=== PATIENT | female | born 1940 | race Caucasian/White ===

== ENCOUNTER → 2020-10-09 14:32 | Outpatient (CLI) | payer MEDICARE, SELFPAY ==
--- NOTE | ~2020-10-09 | XR_ITS ---
EXAMINATION: XR hand RT min 3V, XR wrist RT min 3V DATE: 10/09/2020 14:57 INDICATION: Right hand and wrist pain post fall TECHNIQUE: 1. Posteroanterior, ulnar deviation, oblique, and lateral views of the right wrist were obtained. 2. Dorsal palmar, oblique and lateral views of the right hand were obtained. COMPARISON: None. FINDINGS: Nondisplaced oblique extra articular fracture of the diaphysis of the fifth metacarpal with 5 degrees palmar angulation. Postoperative changes of prior suspension arthroplasty with resection of the trap ezium. The base of the first metacarpal has migrated approximately now articulating with the distal p ole of the scaphoid there is mild chondrocalcinosis. Bone alignment is otherwise normal. Additional c hondrocalcinosis at the triangular fibrocartilage complex. Dystrophic calcific lesion at the ulnar si de of the third proximal interphalangeal joint likely along the ulnar collateral ligament. Mild polya rticular osteoarthritis at the distal radioulnar, wrist, triscaphe, first carpometacarpal and multipl e interphalangeal joints. Diffuse osteopenia. IMPRESSION: 1. 5 degrees palmar angulation of a nondisplaced extra-articular diaphyseal fracture of the right fif th metacarpal. 2. Chondrocalcinosis and mild polyarticular osteoarthritis at the right hand and wrist. 3. Postoperative change of prior first carpal metacarpal suspension arthroplasty with resection of th e trapezium. Reviewed, dictated and finalized at location B. GER GAMES IMPRESSION: 1. 5 degrees palmar angulation of a nondisplaced extra-articular diaphyseal fra cture of the right fifth metacarpal. 2. Chondrocalcinosis and mild polyarticular osteoarthritis at the right hand an d wrist. 3. Postoperative change of prior first carpal metacarpal suspension arthroplast y with resection of the trapezium.
== END ==
PROVIDERS: PCP Family Medicine; Visit Provider Nurse Practitioner
DX: M25.531 Pain in right wrist (principal); M79.641 Pain in right hand; S62.396A Other fracture of fifth metacarpal bone, right hand, initial encounter for closed fracture; M19.041 Primary osteoarthritis, right hand; M11.241 Other chondrocalcinosis, right hand; Z98.890 Other specified postprocedural states
CPT/HCPCS: 73110; 73130

== ENCOUNTER → 2021-01-25 09:54 | Outpatient (CLI) | payer MEDICARE, SELFPAY ==
--- NOTE | ~2021-01-25 | MM_ITS ---
EXAMINATION: MM screening [facility] BI w bonilla HISTORY: Screening mammogram TECHNIQUE: Craniocaudal and mediolateral oblique 3-D tomosynthesis images were obtained and synthetic 2-D images were generated. CAD analysis was submitted and interpreted. COMPARISON: 10/20/2018, 04/14/2017, 06/23/2015 BREAST PARENCHYMAL COMPOSITION: The breasts are almost entirely fatty. FINDINGS: A right breast mass demonstrates slow decrease in size over serial mammograms, consistent w ith a benign finding. There is no evidence of suspicious mass, calcification, or architectural distor tion to suggest malignancy in either breast. There has been no suspicious interval change. IMPRESSION: 1. No mammographic evidence of malignancy. 2. Recommend routine screening mammography while the patient remains in good health. BI-RADS Category 2: Benign finding(s). Reviewed, dictated and finalized at location A. IMPRESSION: 1. No mammographic evidence of malignancy. 2. Recommend routine screening mammography while the patient remains in good he alth. BI-RADS Category 2: Benign finding(s).
--- NOTE | ~2021-01-25 | DEXA_ITS ---
Bone Density Report Name: Juliana Grimes Age: 80 Sex: Female Ethnicity: White Date of : 1940 Indication: postmenopausal; screening for osteoporosis; prior fracture; asthma or emphysema; Referring Provider: Mariola To Study: Bone densitometry was performed. Exam Date: January 25, 2021 Accession number: [id number] Bone Density: Region BMD T-score Z-score Classification AP Spine (L1-L4) 1.001 -0.4 2.3 Normal Femoral Neck (Left) 0.713 -1.2 1.1 Osteopenia Total Hip (Left) 0.899 -0.4 1.7 Normal Femoral Neck (Right) 0.709 -1.3 1.1 Osteopenia Total Hip (Right) 0.919 -0.2 1.9 Normal Total Hip Mean 0.909 -0.3 1.8 Normal World Health Organization criteria for BMD impression classify patients as: Normal (T-score at or above -1.0), Osteopenia (T-score between -1.0 and -2.5), or Osteoporosis (T-score at or below -2.5). 10-year Fracture Risk(1): Major Osteoporotic Fracture 17% Hip Fracture 3.2% Reported Risk Factors: [place] (), Neck BMD=0.709, BMI=33.3, previous fracture (1) FRAX(R) Version 3.08. Fracture probability calculated for an untreated patient. Fracture probability may be lower if the patient has received treatment. Clinical Information Provided by Patient: Has had a low trauma fracture Has used the following medications: Vitamin D Has the following medical conditions: Asthma or Emphysema Patient maximum height was 58.5 Menopause Age: 50 Drinks caffeinated beverages Onset of menses at age 12 Number of children 1 Impression: The patient has low bone mass, based on the Right Femoral Neck T-score. The patient has an estimated ten-year risk of hip fracture of 3.2% and an estimated ten-year risk of major fracture of 17%, based on the WHO FRAX algorithm. The patient has risk factors, including: previous fracture. Discussion: BONE DENSITY IS LOW AT ONE OR MORE SKELETAL SITES. THE PATIENT'S BMD AND CLINICAL RISK FACTORS CONTRIBUTE TO THIS PATIENT'S INCREASED RISK OF FRACTURE. This patient's lowest T-score is low at one or more skeletal sites. It meets the World Health Organization's (WHO) criteria for ?low bone mass? (T-score between -1.0 and -2.5). The patient's 10-year risk of hip fracture as calculated by FRAX exceeds the threshold where pharmacological therapy is recommended by the National Osteoporosis Foundation (NOF). However, all treatment decisions require clinical judgment and consideration of individual patient factors, including patient preferences, comorbidities, previous drug use, risk factors not captured in the FRAX model (e.g., frailty, falls, vitamin D deficiency, increased bone turnover, interval significant decline in bone density) and possible under or overestimation of fracture risk by FRAX. The patient should follow a healthful lifestyle (good nutrition with
== END ==
PROVIDERS: PCP Family Medicine; Visit Provider Family Medicine
DX: Z12.31 Encounter for screening mammogram for malignant neoplasm of breast (principal); Z78.0 Asymptomatic menopausal state; M85.89 Other specified disorders of bone density and structure, multiple sites
CPT/HCPCS: 77063; 77067; 77080

== ENCOUNTER 2022-02-06 11:10 | Outpatient (CLI) | payer MEDICARE, SELFPAY ==
--- NOTE | ~2022-02-06 | XR_ITS ---
EXAMINATION: XR hip RT 2V w AP pelvis DATE: 02/06/2022 11:48 INDICATION: Right hip pain. TECHNIQUE: An anteroposterior view of the pelvis and 2 views of right hip were obtained. COMPARISON: Pelvis radiograph 01/19/2011 FINDINGS: Bone alignment is normal. There is a comminuted fracture of right parasymphyseal pubis. The re is mild osteoarthritis of the hips. There is mild lumbar spondylosis. There are surgical clips in the pelvis. IMPRESSION: 1. Comminuted fracture of right parasymphyseal pubis. Reviewed, dictated and finalized at location A.
== END 2022-02-06 11:11 | disposition home or self-care (01) ==
PROVIDERS: PCP Family Medicine
DX: M16.0 Bilateral primary osteoarthritis of hip (principal); S32.501A Unspecified fracture of right pubis, initial encounter for closed fracture; M47.816 Spondylosis without myelopathy or radiculopathy, lumbar region
CPT/HCPCS: 73502

== ENCOUNTER 2022-03-14 11:44 | Outpatient (CLI) | payer MEDICARE, SELFPAY ==
--- NOTE | ~2022-03-14 | XR_ITS ---
XR hip RT 2V w AP pelvis 03/14/2022 12:07 Indication: Pelvic fracture. Continued right hip pain. Procedure: AP pelvis and 2 views right hip Comparison: 02/06/2022 Findings: There is a healing comminuted right parasymphyseal pubis fracture with developing callus fo rmation. Moderate lower lumbar spondylosis. Sacral foramen are symmetric. Mild osteoarthritis of the hips. No significant soft tissue abnormality. Impression: 1: Healing comminuted right parasymphyseal pubis fracture. Reviewed, dictated and finalized at location A. Impression: 1: Healing comminuted right parasymphyseal pubis fracture.
== END 2022-03-14 11:45 | disposition home or self-care (01) ==
PROVIDERS: PCP Family Medicine; Visit Provider Physician Assistant
DX: S32.501A Unspecified fracture of right pubis, initial encounter for closed fracture (principal)
CPT/HCPCS: 73502

== ENCOUNTER 2022-04-02 10:32 | Outpatient (CLI) | payer MEDICARE, SELFPAY ==
[2022-04-02 18:54] LABS: Alanine Aminotransferase 18 U/L (6-35); Albumin Level 4.6 g/dL (3.5-5.1); Alkaline Phosphatase 210 U/L (38-126); Anion Gap 9 mmol/L (8-16); Aspartate Amino Transferase 46 U/L (14-36); Bilirubin,Total 1.1 mg/dL (0.2-1.3); Blood Urea Nitrogen 20 mg/dL (7-17); Carbon Dioxide 30 mmol/L (22-30); Chloride 93 mmol/L (98-107); Estimated Glomerular Filt Rate > 60; Glucose 88 mg/dL (65-110); Potassium 3.5 mmol/L (3.4-5.0); Sodium 132 mmol/L (137-145)
[2022-04-02 20:54] LABS: Hemoglobin A1C 5.5 % (<5.7)
== END 2022-04-02 10:33 | disposition home or self-care (01) ==
LOC: ANHGOSHLAB 10:34
PROVIDERS: PCP Family Medicine; Visit Provider Family Medicine
DX: E03.9 Hypothyroidism, unspecified (principal); E11.9 Type 2 diabetes mellitus without complications; I10 Essential (primary) hypertension
CPT/HCPCS: 36415; 80053; 83036; 84443

== ENCOUNTER 2022-04-22 10:26 | Outpatient (CLI) | payer MEDICARE, MEDICAID, SELFPAY ==
--- NOTE | ~2022-04-22 | XR_ITS ---
XR hip RT 2V w AP pelvis DATE: 04/22/2022 11:51 INDICATION: Right pelvic pain. Pelvic fracture 6 months ago TECHNIQUE: AP pelvis. AP and lateral views of right hip. COMPARISON: 03/14/2022 pelvis and right hip 02/06/2022 pelvis and right hip FINDINGS: There is some prominent heterotropic ossification around the right parasymphyseal and infer ior pubic ramus fractures consistent with healing, with no significant interval change in position or alignment since 02/06/2022. No fracture or dislocation of the right hip is noted. There is some sclerosis of the sacrum which may be due to at least in part to degenerative changes at the sacroiliac joints, but there does appear to be some increased sclerosis of the sacrum particular ly on the right which might be healing sacral fracture. (Pelvic ring fractures tend to be multiple.) If further evaluation is desired, consider pelvic CT. IMPRESSION: Healing right parasymphyseal pubic and right inferior pubic ramus fractures. There may be a healing sacral fracture as well, as there is new sclerosis of the sacrum particularly on the right since 02/06/2022. No fracture or dislocation of the right hip is detected. Reviewed, dictated and finalized at location B. IMPRESSION: Healing right parasymphyseal pubic and right inferior pubic ramus f ractures. There may be a healing sacral fracture as well, as there is new scler osis of the sacrum particularly on the right since 02/06/2022. No fracture or dislocation of the right hip is detected.
--- NOTE | ~2022-04-22 | MM_ITS ---
EXAMINATION: MM screening [facility] BI w bonilla HISTORY: Screening mammogram TECHNIQUE: Craniocaudal and mediolateral oblique 3-D tomosynthesis images were obtained and synthetic 2-D images were generated. CAD analysis was submitted and interpreted. COMPARISON: 01/25/2021, 10/20/2018, 04/14/2017 BREAST PARENCHYMAL COMPOSITION: The breasts are almost entirely fatty. FINDINGS: RIGHT BREAST: There is no suspicious mass, calcification, or architectural distortion to suggest heath gnancy. There has been no significant interval change. LEFT BREAST: There are grouped indeterminate calcifications in the middle third of the central breast best appreciated on the craniocaudal view. IMPRESSION: 1. Indeterminate left breast calcifications. 2. Magnification views are recommended. BI-RADS Category 0: Incomplete: Needs additional imaging evaluation. Reviewed, dictated and finalized at location A.
== END 2022-04-22 10:27 | disposition home or self-care (01) ==
PROVIDERS: PCP Family Medicine; Visit Provider Physician Assistant
DX: Z12.31 Encounter for screening mammogram for malignant neoplasm of breast (principal); R92.8 Other abnormal and inconclusive findings on diagnostic imaging of breast; M25.551 Pain in right hip; Z87.81 Personal history of (healed) traumatic fracture; M89.9 Disorder of bone, unspecified
CPT/HCPCS: 73502; 77063; 77067

== ENCOUNTER → 2022-05-29 11:57 | Outpatient (CLI) | payer MEDICARE, MEDICAID, SELFPAY ==
--- NOTE | ~2022-05-29 | XR_ITS ---
EXAMINATION: XR hip BI 2V w AP pelvis DATE: 05/29/2022 12:41 INDICATION: Right hip pain. TECHNIQUE: An anteroposterior pelvis and 2 views of each hip were obtained. COMPARISON: Pelvis and hip radiographs 04/22/2022, 02/06/22 FINDINGS: There is a comminuted fracture deformity of right parasymphyseal pubis and right inferior p ubic ramus with callus formation. There is mild osteoarthritis of the hips. There is mild lumbar spon dylosis. Surgical clips overlie the pelvis. IMPRESSION: 1. Stable healing/healed fracture deformity of right parasymphyseal pubis and right inferior pubic ra mus. 2. Mild osteoarthritis of the hips. Reviewed, dictated and finalized at location A. IMPRESSION: 1. Stable healing/healed fracture deformity of right parasymphyseal pubis and r ight inferior pubic ramus. 2. Mild osteoarthritis of the hips.
== END ==
PROVIDERS: PCP Family Medicine; Visit Provider Nurse Practitioner Family
DX: M16.11 Unilateral primary osteoarthritis, right hip (principal)
CPT/HCPCS: 73521

== ENCOUNTER 2022-06-25 03:13 | Emergency (ER) | payer MEDICARE, MEDICAID, SELFPAY ==
--- NOTE | ~2022-06-25 | CT_ITS ---
EXAMINATION: CT brain wo con DATE: 06/25/2022 03:45 INDICATION: Head injury. TECHNIQUE: Computed tomography (CT) of the head was performed without intravenous contrast. The mA wa s adjusted according to patient size. Iterative reconstruction technique was employed. The dose-lengt h product was 529.67 mGy-cm. COMPARISON: Head CT 01/19/2011 FINDINGS: There are scattered areas of low attenuation in the cerebral white matter. There is no intr acranial hemorrhage, acute infarction, or abnormal intracranial mass lesion. The ventricles are marilyn l in size. The orbits are normal. There is mild mucosal thickening in the paranasal sinuses. There is a trace left mastoid effusion. The orbits are normal. IMPRESSION: 1. Stable extensive nonspecific cerebral white matter disease, which likely represents chronic small vessel ischemic disease. Reviewed, dictated and finalized at location A. IMPRESSION: 1. Stable extensive nonspecific cerebral white matter disease, which likely rep resents chronic small vessel ischemic disease.
--- NOTE | ~2022-06-25 | CT_ITS ---
EXAMINATION: CT cervical spine wo con DATE: 06/25/2022 03:45 INDICATION: Neck injury. TECHNIQUE: Computed tomography (CT) of the cervical spine was performed without intravenous contrast. Automated exposure control and iterative reconstruction technique were employed. The dose-length pro duct was 313.80 mGy-cm. COMPARISON: CT cervical spine 01/19/2011 FINDINGS: Bone alignment is normal. There is mild chronic anterior wedging of T1 vertebral body. Ther e is mildly decreased disc height at C3-C4, severely decreased disc height at C4-C5, moderately decre ased disc height at C5-C6, severely decreased disc height at C6-C7, and mildly decreased disc height at C7-T1. There is interbody fusion at C4-C5. The following disc levels are specifically discussed: C2-C3: There is mild bilateral uncovertebral joint osteoarthritis. There is severe right and mild lef t facet joint osteoarthritis. There is no neural foraminal stenosis. There is no central canal stenos is. C3-C4: There is mild bilateral uncovertebral joint osteoarthritis. There is moderate bilateral facet joint osteoarthritis. There is no neural foraminal stenosis. There is no central canal stenosis. C4-C5: There is severe bilateral uncovertebral joint osteoarthritis. There is severe bilateral facet joint osteoarthritis. There is mild right and moderate left neural foraminal stenosis. There is mild central canal stenosis. C5-C6: There is moderate left uncovertebral joint osteoarthritis. There is mild right and severe left facet joint osteoarthritis. There is no neural foraminal stenosis. There is mild central canal steno sis. C6-C7: There is severe bilateral uncovertebral joint osteoarthritis. There is mild bilateral facet sonam int osteoarthritis. There is mild right and moderate left neural foraminal stenosis. There is mild ce ntral canal stenosis. C7-T1: There is no uncovertebral joint osteoarthritis. There is severe bilateral facet joint osteoart hritis. There is mild bilateral neural foraminal stenosis. There is no central canal stenosis. IMPRESSION: 1. No fracture. 2. Severe cervical spondylosis. Reviewed, dictated and finalized at location A.
--- NOTE | ~2022-06-25 | XR_ITS ---
EXAMINATION: XR shoulder RT min 2V DATE: 06/25/2022 04:00 INDICATION: Right shoulder pain. TECHNIQUE: 4 views of right shoulder were obtained. COMPARISON: Right shoulder radiographs 01/02/2021 FINDINGS: There is superior subluxation of the humeral head with respect to glenoid with narrowing of the subacromial space, consistent with rotator cuff tear. There is a fracture of greater tuberosity of proximal humerus with at least 4 mm displacement. There is severe osteoarthritis of glenohumeral j oint and acromioclavicular joint. IMPRESSION: 1. Fracture of greater tuberosity of proximal humerus. 2. Polyarticular osteoarthritis. 3. Right rotator cuff tear. Reviewed, dictated and finalized at location A.
--- NOTE | ~2022-06-25 | XR_ITS ---
EXAMINATION: XR pelvis 1-2V DATE: 06/25/2022 04:00 INDICATION: Right hip pain. TECHNIQUE: An anteroposterior view of the pelvis was obtained. COMPARISON: Pelvis radiograph 05/29/2022, 02/06/2022 FINDINGS: There is an old fracture involving right parasymphyseal pubis and right superior and inferi or pubic rami. There is an old fracture deformity of right sacral ala. No acute fracture. There is mi ld osteoarthritis of the hips. There is mild lumbar spondylosis. Surgical clips overlie the pelvis. IMPRESSION: 1. Old fractures of right parasymphyseal pubis, right superior and inferior pelvic rami, and right sa cral ala. 2. Mild osteoarthritis of the hips. Reviewed, dictated and finalized at location A. IMPRESSION: 1. Old fractures of right parasymphyseal pubis, right superior and inferior pel aaron rami, and right sacral ala. 2. Mild osteoarthritis of the hips.
[2022-06-25 03:16] VITALS: BP 172/97; PULSE 71; RESP 18; TEMP 37.1; O2SAT 96
--- NOTE | 2022-06-25 04:03 | ED.FALL ---
HPI - Fall General Chief Complaint: Fall Stated Complaint: FALL Time Seen by Provider: 06/25/22 03:27 History of Present Illness HPI Narrative: This is an 81-year-old female with past medical history of hyperlipidemia, hypothyroidism, brought by EMS from alf after a fall. Patient states she was in bed, reaching for a glass of milk, when she accidentally rolled off the bed, falling, striking her head and landing on her right shoulder and hip. She complains of 6 out of 10 headache but denies loss of consciousness, weakness/numbness or change loss of vision. She also complains of mild tenderness of the right shoulder and right hip. She has no other complaints. She denies chest pain, palpitations, shortness of breath or lightheadedness before or after the fall. EMS reports the patient ambulated without difficulty. Related Data Home Medications Medication Instructions Recorded Confirmed blood sugar diagnostic (True #10 ea 08/09/19 04/02/22 Metrix Glucose Test Strip) lancets (Ultra Thin Lancets) #50 ea 08/09/19 04/02/22 psyllium husk 0.4 gram capsule 0.4 gm PO DAILY 10/25/19 04/02/22 (Daily Fiber) olanzapine 2.5 mg tablet 2.5 mg PO DAILY 05/15/20 04/02/22 escitalopram oxalate 10 mg tablet 10 mg PO DAILY 03/14/21 04/02/22 (Lexapro) memantine 10 mg tablet 10 mg PO BID 03/28/21 04/02/22 acetaminophen 650 mg 650 mg PO Q8H 11/26/21 04/02/22 tablet,extended release (Tylenol Arthritis Pain) donepezil 10 mg tablet 10 mg PO QHS 04/02/22 04/02/22 Allergies Allergy/AdvReac Type Severity Reaction Status Date / Time azithromycin Allergy Unknown Diarrhea Verified 06/25/22 04:44 codeine Allergy Unknown Nausea Verified 06/25/22 04:44 Penicillins Allergy Unknown Skin Verified 06/25/22 04:44 irritation PMFSH Past Medical History Medical History Anxiety Arthritis Arthritis of carpometacarpal (CMC) joint of left thumb Bilateral shoulder region arthritis Chronic low back pain with sciatica 12/16/2018 Contusion of shoulder, left COPD (chronic obstructive pulmonary disease) Degenerative arthritis of right shoulder region Dementia Depression Diabetes 02/18/2018 Dyslipidemia Essential (primary) hypertension High cholesterol Hypothyroidism Recurrent falls Tendonitis of left rotator cuff Unspecified osteoarthritis, unspecified site Vitamin D deficiency Surgical History Surgical History History of bilateral knee replacement 1990s History of cholecystectomy (~1980) Family History Family History Mother Stomach cancer Sibling Lung cancer Social History Social History Smoking status: Never smoker Second hand tobacco smoke exposure: No Smoking end date: 09/15/69 Alcohol intake: never Substance use: never Substance use type: does not use Additional living arrangements comments: Gender identity (if verbalized by the patient): Female Course Course Emergency Course: 04:32 - STAT Rad interpretations of CT head and CT C-spine negative for fracture or intracranial hemorrhage. My review of x-rays are not concerning for shoulder fracture dislocation, or fracture of the femur or pelvis. Patient ambulated without difficulty. Reassessed patient, she politely refuses Tylenol and is comfortable with discharge. Discussed return emergency precautions including signs/symptoms of intracranial hemorrhage and ACS. The patient voiced understanding and is comfortable with the plan. All questions answered to her satisfaction. Vital Signs Vital signs: Vital Signs Temperature 98.8 F 06/25/22 03:16 Pulse Rate 71 06/25/22 03:16 Respiratory Rate 18 06/25/22 03:16 Blood Pressure 172/97 H 06/25/22 03:16 Pulse Oximetry 96 06/25/22 03:16 Oxygen Delivery Room A
[2022-06-25 04:45] VITALS: BP 123/87; PULSE 85; RESP 19; O2SAT 99
--- NOTE | 2022-06-25 04:53 | PC.NURSE ---
contacted pt. son at [phone] states he will call [facility] to take pt. home.
== END 2022-06-25 05:30 ==
PROVIDERS: Emergency Provider Preventive Medicine Aerospace Medicine; PCP Family Medicine
DX: S06.0X0A Concussion without loss of consciousness, initial encounter (principal); S42.251A Displaced fracture of greater tuberosity of right humerus, initial encounter for closed fracture; S70.01XA Contusion of right hip, initial encounter; S40.011A Contusion of right shoulder, initial encounter; S46.011A Strain of muscle(s) and tendon(s) of the rotator cuff of right shoulder, initial encounter; F03.90 Unspecified dementia, unspecified severity, without behavioral disturbance, psychotic disturbance, mood disturbance, and anxiety; E78.5 Hyperlipidemia, unspecified; J44.9 Chronic obstructive pulmonary disease, unspecified; E11.9 Type 2 diabetes mellitus without complications; I10 Essential (primary) hypertension; E03.9 Hypothyroidism, unspecified; E55.9 Vitamin D deficiency, unspecified; M19.011 Primary osteoarthritis, right shoulder; M18.9 Osteoarthritis of first carpometacarpal joint, unspecified; M16.0 Bilateral primary osteoarthritis of hip; F32.A Depression, unspecified; F41.9 Anxiety disorder, unspecified; Z96.653 Presence of artificial knee joint, bilateral; Z87.891 Personal history of nicotine dependence; Z79.82 Long term (current) use of aspirin; M47.812 Spondylosis without myelopathy or radiculopathy, cervical region; W06.XXXA Fall from bed, initial encounter
CPT/HCPCS: 70450; 72125; 72170; 73030; 99284

== ENCOUNTER 2022-07-17 09:15 | Emergency (ER) | payer MEDICARE, MEDICAID, SELFPAY ==
--- NOTE | ~2022-07-17 | CT_ITS ---
EXAMINATION: CT cist ab celsa de la garza wo DATE: 07/17/2022 09:54 INDICATION: Fall. Back pain. TECHNIQUE: Computed tomography (CT) of the chest, abdomen, and pelvis was performed without intraveno us contrast. Automated exposure control and iterative reconstruction technique were employed. Exam do se: 1351.51 mGy-cm total exam DLP. COMPARISON: 08/31/2011 CT abdomen pelvis FINDINGS: CHEST CT: There is minimal focal tree-in-bud infiltrate or scarring in the posterior right upper lobe and Y eit her minimal tree-in-bud infiltrate in the left upper and to a lesser extent lower lobes. No pulmonary consolidation. Mild discoid atelectasis or more likely scarring in the lower lobes. Calcified middle lobe granuloma is calcified right hilar and subcarinal nodes consistent with old pulmonary granulomatous disease. Ca lcified hepatic and splenic granulomas are noted as well. Normal heart size. Prominent coronary artery calcifications. No thoracic aortic aneurysm. There is ao rtic and great vessel calcification. No pericardial or pleural effusion. No hilar or mediastinal mass lesion or lymphadenopathy. Very large sliding hiatal hernia containing the majority of the stomach. ABDOMEN/PELVIS CT: Status post cholecystectomy. No hepatic, splenic space-occupying mass lesion. There is a pancreatic c alcification suggesting chronic pancreatitis. No pancreatic mass lesion or pancreatic duct dilatation . Mild prominence of the common bile duct may be secondary to cholecystectomy. Normal morphology of the adrenal glands. No renal mass lesion or urinary tract calculus or hydroureteronephrosis. There is extensive calcification of the abdominal aorta and iliac arteries without aneurysm. No intra peritoneal or retroperitoneal or pelvic mass lesion or adenopathy or ascites. The uterus, adnexal are as and urinary bladder are unremarkable. There are numerous diverticula of the sigmoid and descending colon; no CT evidence of diverticulitis. No bowel obstruction, bowel wall thickening, pneumatosis or intraperitoneal free air. Severe degenerative disc disease in the lower cervical spine, particularly at C4-5 and C6-7. Moderate anterior wedge compression fracture of T10, which may be chronic. Grade 1 anterolisthesis and moderately prominent degenerative disc disease at L5-S1. Prominent degene rative disc disease at T12-L1, L1-2 and L2-3. Bilateral subacute sacral fractures, more prominent on the right, likely due to sacral insufficiency fractures. Comminuted fracture of the right pubis. IMPRESSION: Bilateral sacral fractures, particularly prominent on the right, likely subacute Moderate T10 anterior wedge compression fracture, possibly chronic Multilevel degenerative disc disease of the lumbar spine Large hiatal hernia Status post cholecystectomy Reviewed, dictated and finalized at Location A. Reviewed, dictated and finalized at location A. IMPRESSION: Bilateral sacral fractures, particularly prominent on the right, l ikely subacute Moderate T10 anterior wedge compression fracture, possibly chronic Multilevel degenerative disc disease of the lumbar spine Large hiatal hernia Status post cholecystectomy
--- NOTE | ~2022-07-17 | CT_ITS ---
EXAMINATION: CT brain wo con DATE: 07/17/2022 09:53 INDICATION: Head injury. TECHNIQUE: Computed tomography (CT) of the head was performed without intravenous contrast. The mA wa s adjusted according to patient size. Iterative reconstruction technique was employed. The dose-lengt h product was 605.33 mGy-cm. COMPARISON: Head CT 06/25/2022 FINDINGS: There are scattered areas of low attenuation in the cerebral white matter. There is no intr acranial hemorrhage, acute infarction, or abnormal intracranial mass lesion. The ventricles are marilyn l in size. There is mild mucosal thickening in the paranasal sinuses. The orbits are normal. The mast oid air cells are normal. There is cerumen in the external auditory canals. IMPRESSION: 1. Stable extensive nonspecific cerebral white matter disease, which likely represents chronic small vessel ischemic disease. Reviewed, dictated and finalized at location A. IMPRESSION: 1. Stable extensive nonspecific cerebral white matter disease, which likely rep resents chronic small vessel ischemic disease.
--- NOTE | ~2022-07-17 | XR_ITS ---
EXAMINATION: XR shoulder LT min 2V DATE: 07/17/2022 10:00 INDICATION: Left shoulder pain. TECHNIQUE: 4 views of left shoulder were obtained. COMPARISON: Left shoulder radiographs 01/02/2021 FINDINGS: Bone alignment is normal. No fracture. There is moderate osteoarthritis of glenohumeral haley nt and mild osteoarthritis of acromioclavicular joint. IMPRESSION: 1. Polyarticular osteoarthritis. Reviewed, dictated and finalized at location A.
--- NOTE | ~2022-07-17 | CT_ITS ---
EXAMINATION: CT cervical spine wo con DATE: 07/17/2022 09:54 INDICATION: Neck injury. TECHNIQUE: Computed tomography (CT) of the cervical spine was performed without intravenous contrast. Automated exposure control and iterative reconstruction technique were employed. The dose-length pro duct was 340.85 mGy-cm. COMPARISON: CT cervical spine 06/25/2022 FINDINGS: There is a trace left mastoid effusion. There is 2 mm retrolisthesis of C4 on C5 and 2 mm a nterolisthesis of C5 on C6 and C7 on T1. There is 10 degrees dextroscoliosis of cervicothoracic spine . There is mild chronic anterior wedging of T1 vertebral body. There is mildly decreased disc height at C3-C4, severely decreased disc height at C4-C5, moderately d ecreased disc height at C5-C6, severely decreased disc height at C6-C7, and mildly decreased disc hei ght at C7-T1. There is interbody fusion at C4-C5. The following disc levels are specifically discusse d: C2-C3: There is mild bilateral uncovertebral joint osteoarthritis. There is severe right and mild lef t facet joint osteoarthritis. There is no neural foraminal stenosis. There is no central canal stenos is. C3-C4: There is mild bilateral uncovertebral joint osteoarthritis. There is moderate bilateral facet joint osteoarthritis. There is no neural foraminal stenosis. There is no central canal stenosis. C4-C5: There is severe bilateral uncovertebral joint osteoarthritis. There is severe bilateral facet joint osteoarthritis. There is mild right and moderate left neural foraminal stenosis. There is mild central canal stenosis. C5-C6: There is moderate left uncovertebral joint osteoarthritis. There is mild right and severe left facet joint osteoarthritis. There is no neural foraminal stenosis. There is mild central canal steno sis. C6-C7: There is severe bilateral uncovertebral joint osteoarthritis. There is mild bilateral facet sonam int osteoarthritis. There is mild right and moderate left neural foraminal stenosis. There is mild ce ntral canal stenosis. C7-T1: There is no uncovertebral joint osteoarthritis. There is severe bilateral facet joint osteoart hritis. There is mild bilateral neural foraminal stenosis. There is no central canal stenosis. IMPRESSION: 1. No fracture. 2. Severe cervical spondylosis. Reviewed, dictated and finalized at location A.
--- NOTE | 2022-07-17 09:11 | ED.FALL ---
HPI - Fall General Chief Complaint: Fall Stated Complaint: fall Source: patient Mode of arrival: EMS Limitations: no limitations History of Present Illness HPI Narrative: Patient is an 81-year-old female with a history of hyperlipidemia, hypertension, diabetes, hypothyroidism, COPD, osteoarthritis, anxiety/dementia, presenting to the emergency department for evaluation following a fall out of chair at her [facility]. Patient states that she slipped out of her wheelchair this morning while attempting to eat breakfast. This was witnessed by staff at the [facility], she did hit her head on a pillar behind the chair, but no loss of consciousness. When questioned how the patient fell out of her chair, she I slid off. Patient arrives in cervical collar reporting neck pain, back pain, bilateral hip pain. Patient denies numbness. She reports feeling diffusely weak. Patient denies any chest pain, lightheadedness or dizziness. Denies palpitations. Patient also reporting left shoulder pain. Patient has a recent history of right humeral fracture, the right upper extremity is in a sling. Chart reviewed, recent orthopedics visit and primary care physician visit. Related Data Home Medications Medication Instructions Recorded Confirmed blood sugar diagnostic (True #10 ea 08/09/19 07/03/22 Metrix Glucose Test Strip) lancets (Ultra Thin Lancets) #50 ea 08/09/19 07/03/22 psyllium husk 0.4 gram capsule 0.4 gm PO DAILY 10/25/19 07/03/22 (Daily Fiber) olanzapine 2.5 mg tablet 2.5 mg PO DAILY 05/15/20 07/03/22 escitalopram oxalate 10 mg tablet 10 mg PO DAILY 03/14/21 07/03/22 (Lexapro) memantine 10 mg tablet 10 mg PO BID 03/28/21 07/03/22 acetaminophen 650 mg 650 mg PO Q8H 11/26/21 07/03/22 tablet,extended release (Tylenol Arthritis Pain) donepezil 10 mg tablet 10 mg PO QHS 04/02/22 07/03/22 albuterol sulfate 2.5 mg/3 mL 2.5 mg inhalation Q6H 06/28/22 07/03/22 (0.083 %) solution for nebulization aspirin 81 mg tablet,delayed 81 mg PO DAILY 06/28/22 07/03/22 release hydrocodone 7.5 mg-acetaminophen 15 ml PO Q6H PRN 06/28/22 07/03/22 325 mg/15 mL oral solution tizanidine 2 mg capsule 2 mg PO TID PRN 06/28/22 07/03/22 Allergies Allergy/AdvReac Type Severity Reaction Status Date / Time azithromycin Allergy Unknown Diarrhea Verified 07/17/22 09:23 codeine Allergy Unknown Nausea Verified 07/17/22 09:23 Penicillins Allergy Unknown Skin Verified 07/17/22 09:23 irritation Review of Systems Review of Systems: CONSTITUTIONAL: Denies fever, chills, or sweats. EYES: Denies visual changes, redness, or discharge. ENT: Denies rhinorrhea, congestion, sore throat, or otalgia. CARDIOVASCULAR: Denies chest pain, palpitations, or edema. RESPIRATORY: Denies cough or dyspnea. GASTROINTESTINAL: Denies abdominal pain, nausea, vomiting, or diarrhea. GENITOURINARY: Denies dysuria or hematuria. SKIN: Denies rash or itching. MUSCULOSKELETAL: Reports neck pain, upper and lower back pain, reports bilateral hip pain and left shoulder pain NEUROLOGIC: Denies headache, numbness, or weakness. [facility] Past Medical History Medical History Anxiety Arthritis Arthritis of carpometacarpal (CMC) joint of left thumb Bilateral shoulder region arthritis Chronic low back pain with sciatica 12/16/2018 Closed fracture of right proximal humerus Contusion of shoulder, left COPD (chronic obstructive pulmonary disease) Degenerative arthritis of right shoulder region Dementia Depression Diabetes 02/18/2018 Dyslipidemia Essential (primary) hypertension Fall from bed, initial encounter High cholesterol Hypothyroidism Recurrent falls Tendonitis of left rotator cuff Unspecified osteoarthritis, unspecified site Vitamin D deficiency Surgical History Surgical History History of bilateral knee replacement 1990s History of cholecystectomy (~
[2022-07-17 09:13] VITALS: BP 164/89; PULSE 87; RESP 20; TEMP 36.9; O2SAT 97
--- NOTE | 2022-07-17 09:41 | PC.NURSE ---
Pt to CT scan via stretcher at this time.
[2022-07-17 09:47] LABS: Basophils Percent Auto 0.4 % (0.2-1.2); Eosinophils Absolute Auto 0.2 K/mm3 (0-0.3); Hematocrit 42.5 % (37.0-47.0); Hemoglobin 14.4 g/dL (12.0-15.0); Immature Granulocyte Absolute 0.03 K/mm3 (0.00-0.031); Immature Granulocyte Percent A 0.4 % (0-0.5); Lymphocytes Absolute Auto 2.33 K/mm3 (0.9-3.2); Lymphocytes Percent Auto 29.7 % (18.3-44.2); Mean Corpuscular HGB Conc 33.9 g/dl (32-36); Mean Corpuscular Hemoglobin 30.1 pg (26-34); Mean Corpuscular Volume 88.7 fl (80-100); Mean Platelet Volume 10.1 fl (7.4-10.4); Monocytes Absolute Auto 0.7 K/mm3 (0.1-0.6); Monocytes Percent Auto 9.4 % (2.6-8.5); Neutrophils Absolute Auto 4.6 K/mm3 (1.3-6.7); Neutrophils Percent Auto 58.1 % (45.5-73.1); Platelet Count Result 184 k/mm3 (150-375); Red Blood Count 4.79 M/mm3 (4.2-5.4); Red Cell Distribution Width 12.4 % (11.5-14.5); White Blood Count 7.8 K/mm3 (4.5-10.0)
[2022-07-17 09:53] LABS: Anion Gap 14 mmol/L (8-16); Blood Urea Nitrogen 26 mg/dL (7-17); Calcium 9.4 mg/dL (8.4-10.2); Carbon Dioxide 29 mmol/L (22-30); Chloride 96 mmol/L (98-107); Estimated CRCL calculation 41 ml/min; Estimated Glomerular Filt Rate 60; Glucose 126 mg/dL (65-110); Potassium 3.3 mmol/L (3.4-5.0); Sodium 139 mmol/L (137-145)
[2022-07-17] MEDS: SODIUM CHLORIDE 0.9% IV 500 ML 999 ML IV CONT (10:05)
[2022-07-17] MEDS: ACETAMINOPHEN 500 MG TABLET 1000 MG PO (10:06)
--- NOTE | 2022-07-17 10:37 | PC.NURSE ---
C Collar removed by EDP Dr Willis following imaging results.
[2022-07-17 10:38] VITALS: BP 179/91; PULSE 79; RESP 15; O2SAT 100
[2022-07-17 11:31] VITALS: BP 150/79; PULSE 63; RESP 15; O2SAT 100
[2022-07-17] MEDS: POTASSIUM CHLORIDE 20 MEQ PACKET (FOR LIQUID) PO (11:31)
--- NOTE | 2022-07-17 11:57 | PC.NURSE ---
called [place] jose ramon and [facility] for Lachelle (dir of nursing) to give nurse to nurse report, TCB w/ no answer at this time.
== END 2022-07-17 12:25 ==
PROVIDERS: Emergency Provider Emergency Medicine; PCP Family Medicine
DX: S32.10XA Unspecified fracture of sacrum, initial encounter for closed fracture (principal); M25.512 Pain in left shoulder; M19.90 Unspecified osteoarthritis, unspecified site; F41.9 Anxiety disorder, unspecified; J44.9 Chronic obstructive pulmonary disease, unspecified; I10 Essential (primary) hypertension; E11.9 Type 2 diabetes mellitus without complications; E03.9 Hypothyroidism, unspecified; W05.0XXA Fall from non-moving wheelchair, initial encounter
CPT/HCPCS: 36415; 70450; 71250; 72125; 72128; 72131; 73030; 74176; 80048; 85025; 96360; 99284; A9270; J7040

== ENCOUNTER 2022-10-31 13:14 | Emergency (ER) | payer MEDICARE, MEDICAID, SELFPAY ==
--- NOTE | ~2022-10-31 | XR_ITS ---
EXAMINATION: XR shoulder LT min 2V DATE: 10/31/2022 13:41 INDICATION: Left shoulder pain. TECHNIQUE: 2 views of left shoulder were obtained. COMPARISON: Left shoulder radiographs 07/17/2022, chest CT 07/17/2022 FINDINGS: Bone alignment is normal. No fracture. There is severe osteoarthritis of glenohumeral joint and mild osteoarthritis of acromioclavicular joint. IMPRESSION: 1. Polyarticular osteoarthritis. Reviewed, dictated and finalized at location A. 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
[2022-10-31 13:28] VITALS: BP 151/93; PULSE 80; RESP 16; TEMP 36.9; O2SAT 98
--- NOTE | 2022-10-31 14:07 | ED.UPPEXIN ---
HPI - Extremity Injury (Upper) General Chief Complaint: Extremity Injury, Upper Stated Complaint: left arm pain Time Seen by Provider: 10/31/22 14:07 Source: patient Mode of arrival: ambulatory Limitations: no limitations History of Present Illness HPI narrative: 82-year-old female presents with complaint of left shoulder pain. Reports yesterday while she was bending down and reaching into a low cabinet to grab out some type wear, she fell over onto her left shoulder. Patient was able to get up on her own. Patient states that she lifts and in assisted living facility but. She is here today with her caregiver. She has been wearing a sling to her left arm that she had from a previous right shoulder surgery. She reports decreased range of motion to left shoulder since fall. Patient takes ibuprofen, Tylenol and hydrocodone daily as a pain plan from assisted living. All Systems reviewed and negative except as noted above. Related Data Home Medications Medication Instructions Recorded Confirmed blood sugar diagnostic (True #10 ea 08/09/19 10/31/22 Metrix Glucose Test Strip) lancets (Ultra Thin Lancets) #50 ea 08/09/19 10/31/22 psyllium husk 0.4 gram capsule 0.4 gm PO DAILY 10/25/19 10/31/22 (Daily Fiber) olanzapine 2.5 mg tablet 2.5 mg PO DAILY 05/15/20 10/31/22 escitalopram oxalate 10 mg tablet 10 mg PO DAILY 03/14/21 10/31/22 (Lexapro) memantine 10 mg tablet 10 mg PO BID 03/28/21 10/31/22 acetaminophen 650 mg 650 mg PO Q8H 11/26/21 10/31/22 tablet,extended release (Tylenol Arthritis Pain) donepezil 10 mg tablet 10 mg PO QHS 04/02/22 10/31/22 albuterol sulfate 2.5 mg/3 mL 2.5 mg inhalation Q6H 06/28/22 10/31/22 (0.083 %) solution for nebulization aspirin 81 mg tablet,delayed 81 mg PO DAILY 06/28/22 10/31/22 release hydrocodone 7.5 mg-acetaminophen 15 ml PO Q6H PRN Pain 06/28/22 10/31/22 325 mg/15 mL oral solution tizanidine 2 mg capsule 2 mg PO TID PRN rx 06/28/22 10/31/22 Allergies Allergy/AdvReac Type Severity Reaction Status Date / Time azithromycin Allergy Unknown Diarrhea Verified 10/31/22 13:34 codeine Allergy Unknown Nausea Verified 10/31/22 13:34 Penicillins Allergy Unknown Skin Verified 10/31/22 13:34 irritation Review of Systems Review of Systems: CONSTITUTIONAL: Denies fever, chills, or sweats. EYES: Denies visual changes, redness, or discharge. ENT: Denies rhinorrhea, congestion, sore throat, or otalgia. CARDIOVASCULAR: Denies chest pain, palpitations, or edema. RESPIRATORY: Denies cough or dyspnea. GASTROINTESTINAL: Denies abdominal pain, nausea, vomiting, or diarrhea. GENITOURINARY: Denies dysuria or hematuria. SKIN: Denies rash or itching. MUSCULOSKELETAL: Denies back pain, joint pain, or myalgia. reports left shoulder pain. NEUROLOGIC: Denies headache, numbness, or weakness. PSYCHIATRIC: Denies anxiety or depression. All other systems reviewed are negative, except as documented in HPI. [facility] Past Medical History Medical History (Updated 10/31/22 @ 14:17 by Pmaela Philippe NP) Anxiety Arthritis Arthritis of carpometacarpal (CMC) joint of left thumb Arthritis of left shoulder region Bilateral shoulder region arthritis Chronic low back pain with sciatica 12/16/2018 Closed fracture of right proximal humerus Contusion of shoulder, left COPD (chronic obstructive pulmonary disease) Degenerative arthritis of right shoulder region Dementia Depression Diabetes 02/18/2018 Dyslipidemia Essential (primary) hypertension Fall from bed, initial encounter High cholesterol Hypothyroidism Recurrent falls Tendonitis of left rotator cuff Unspecified osteoarthritis, unspecified site Vitamin D deficiency Surgical History Surgical History History of bilateral knee replacement 1990s History of cholecystectomy (~1979) Family History Family History Mother Stomach
== END 2022-10-31 14:26 | disposition home or self-care (01) ==
PROVIDERS: Emergency Provider Nurse Practitioner Family; PCP Family Medicine
DX: S40.012A Contusion of left shoulder, initial encounter (principal); W19.XXXA Unspecified fall, initial encounter; J44.9 Chronic obstructive pulmonary disease, unspecified; F03.90 Unspecified dementia, unspecified severity, without behavioral disturbance, psychotic disturbance, mood disturbance, and anxiety; E11.9 Type 2 diabetes mellitus without complications; E78.5 Hyperlipidemia, unspecified; I10 Essential (primary) hypertension; E78.00 Pure hypercholesterolemia, unspecified; M18.12 Unilateral primary osteoarthritis of first carpometacarpal joint, left hand; M19.012 Primary osteoarthritis, left shoulder; Z96.653 Presence of artificial knee joint, bilateral; Z79.82 Long term (current) use of aspirin
CPT/HCPCS: 73030; 99213; G0463

== ENCOUNTER 2023-07-23 12:22 | Emergency (ER) | payer MEDICARE, MEDICAID, SELFPAY ==
[2023-07-23] VITALS (7 sets, daily range): BP systolic 140–152; BP diastolic 67–81; PULSE 66–72; RESP 16–20; TEMP 36.8; O2SAT 94–100
--- NOTE | ~2023-07-23 | CT_ITS ---
EXAMINATION: CT brain wo con INDICATION: Headache COMPARISON: 07/17/2022 TECHNIQUE: Standard unenhanced head CT. The dose-length product (DLP) was 605.33 mGy-cm. The mA was a djusted according to patient size. Iterative reconstruction technique was employed. FINDINGS: No acute intraparenchymal hemorrhage. No evidence of mass lesion. No evidence of acute infa rction. There is marked periventricular and subcortical hypodensity probably related to small vessel ischemic disease. There is mild prominence of the sulci and ventricles related to cerebral atrophy. I ntracranial calcified cerebral atherosclerosis is noted. No extra-axial collections. No mass effect o r midline shift. The orbits and soft tissues are unremarkable. There is a left mastoid effusion. Ther e is mild mucosal thickening in the right sphenoid sinus. IMPRESSION: 1. No acute intracranial abnormality. 2. Age related findings. Reviewed, dictated and finalized at location B. CLEANER
--- NOTE | ~2023-07-23 | XR_ITS ---
EXAMINATION: XR hip RT 2V w AP pelvis INDICATION: Right hip pain TECHNIQUE: AP view the pelvis and two views of the right hip are obtained. COMPARISON: 07/17/2022 FINDINGS: There is moderate osteoarthritis of the hips. No acute fracture is identified. There is a c hronic right parasymphyseal fracture as well as right superior and inferior pubic rami fractures with out significant change. There is sclerosis in the right sacrum at the site of healed or healing insuf ficiency fracture. There are surgical clips in the pelvis. IMPRESSION: 1. Prior pelvic fractures without acute osseous abnormality identified. Reviewed, dictated and finalized at location B. 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
--- NOTE | ~2023-07-23 | XR_ITS ---
EXAMINATION: XR shoulder LT min 2V DATE: 07/23/2023 13:22 INDICATION: Left shoulder pain post fall TECHNIQUE: AP internally and externally rotated, AP oblique externally rotated and transscapular Y vi ews of the left shoulder were obtained. COMPARISON: 10/31/2022 and 07/17/2022 FINDINGS: Normal alignment. No fracture.Continued progression of moderate to severe left glenohumeral osteoarth ritis with cephalad predominant nonuniform joint space narrowing and enlarging marginal osteophytes a bout the humeral head and small marginal osteophytes along the glenoid. Mild acromioclavicular osteoa rthritis. Severe cervical and mild thoracic spondylosis. Soft tissues are unremarkable. Visualized po rtion of the left lung are clear. IMPRESSION: Moderate to severe left glenohumeral osteoarthritis. No acute osseous abnormality. Reviewed, dictated and finalized at location A. 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 No acute osseous abnormali ty.
--- NOTE | ~2023-07-23 | XR_ITS ---
EXAMINATION: XR hip LT 2V w AP pelvis DATE: 07/23/2023 13:22 INDICATION: Left hip pain post fall TECHNIQUE: Anteroposterior view of the pelvis and anteroposterior and frog-leg lateral views of the l eft hip were obtained. COMPARISON: CT dated 07/17/2022 FINDINGS: Again seen is prominent heterotopic ossification about a with displaced and likely still ununited chr onic fracture of the right pubic body. Increased sclerosis associated with a chronic fracture of the right sacral ala better appreciated on prior CT which also demonstrates a chronic fracture at the inf erior left sacral ala which is not appreciated on the current plain radiographs. No acute fractures i dentified. Mild osteoarthritis of the left hip. IMPRESSION: 1. Mild osteoarthritis at the left hip. No acute osseous abnormality. 2. 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 3. Sclerosis associated with a chronic fracture of the right sacral ala with additional chronic left sacral ala fracture identified on prior CT not clearly discernible on the provided radiographs. Reviewed, dictated and finalized at location A. TECHNICIAN IMPRESSION: 1. Mild osteoarthritis at the left hip. No acute osseous abnormality. 2. Chronic displaced fracture of the right pubic body which appears likely to r emain ununited. 3. Sclerosis associated with a chronic fracture of the right sacral ala with ad ditional chronic left sacral ala fracture identified on prior CT not clearly di scernible on the provided radiographs.
--- NOTE | 2023-07-23 12:29 | ECG_ITS ---
Measurements Intervals [place] Rate: 73 P: 66 MS: 211 QRS: -5 QRSD: 96 T: 47 QT: 423 QTc: 468 Interpretive Statements SINUS RHYTHM WITH FIRST DEGREE AV BLOCK ATRIAL PREMATURE COMPLEX LOW QRS VOLTAGE IN PRECORDIAL LEADS INCOMPLETE RIGHT BUNDLE BRANCH BLOCK BASELINE ARTIFACT- I, II, III, AVR, AVL, AVF BORDERLINE ECG NO PREVIOUS ECG AVAILABLE FOR COMPARISON Electronically Signed On 07-23-2023 13:13:20 PACKAGE CAR DRIVER by Silvio Valadez D.O.
[2023-07-23 12:35] LABS: Glucose Point of Care 96 mg/dl (65-105)
--- NOTE | 2023-07-23 14:37 | ED.FALL ---
HPI - Fall General Chief Complaint: Fall Stated Complaint: glf - shoulder and hip pain Time Seen by Provider: 07/23/23 12:37 History of Present Illness HPI Narrative: Patient is an 82-year-old female with history of dementia who presents ER status post fall. She reports she was walking in a spare room when her foot got stuck on the ground and she fell backwards onto her back. She presents ER with reports of left hip pain and left shoulder pain however triage was informed that she has right hip pain. Patient is unsure if she hit her head or lost consciousness. Related Data Home Medications Medication Instructions Recorded Confirmed lancets (Ultra Thin Lancets) #50 ea 08/09/19 06/05/23 psyllium husk 0.4 gram capsule 0.4 gm PO DAILY 10/25/19 06/05/23 (Daily Fiber) memantine 10 mg tablet 10 mg PO BID 03/28/21 06/05/23 acetaminophen 650 mg 650 mg PO Q8H 11/26/21 11/28/22 tablet,extended release (Tylenol Arthritis Pain) donepezil 10 mg tablet 10 mg PO QHS 04/02/22 06/05/23 aspirin 81 mg tablet,delayed 81 mg PO DAILY 06/28/22 06/05/23 release tizanidine 2 mg capsule 2 mg PO TID PRN muscle spasticity 06/28/22 06/05/23 acetaminophen 500 mg tablet 1,000 mg PO Q8H PRN 11/28/22 06/05/23 escitalopram oxalate 20 mg tablet 20 mg PO DAILY 11/28/22 06/05/23 hydrocodone 5 mg-acetaminophen 325 1 tablet PO BID 11/28/22 06/05/23 mg tablet mirtazapine 7.5 mg tablet 7.5 mg PO DAILY 11/28/22 06/05/23 olanzapine 2.5 mg tablet 2.5 mg PO QAM 11/28/22 06/05/23 olanzapine 5 mg tablet 5 mg PO QHS 11/28/22 06/05/23 sennosides 8.6 mg tablet (senna) 8.6 mg PO QHS 11/28/22 06/05/23 hydroxyzine HCl 25 mg tablet 25 mg PO QHS 06/05/23 06/05/23 Allergies Allergy/AdvReac Type Severity Reaction Status Date / Time azithromycin Allergy Unknown Diarrhea Verified 06/05/23 12:55 codeine Allergy Unknown Nausea Verified 06/05/23 12:55 Penicillins Allergy Unknown Skin Verified 06/05/23 12:55 irritation Review of Systems Review of Systems: ROS unobtainable: Yes unobtainable due to mental status PMFSH Past Medical History Medical History Anxiety Arthritis of carpometacarpal (CMC) joint of left thumb Arthritis of left shoulder region Bilateral shoulder region arthritis Chronic low back pain with sciatica 12/16/2018 Closed fracture of right proximal humerus Contusion of shoulder, left COPD (chronic obstructive pulmonary disease) Degenerative arthritis of right shoulder region Dementia Depression Diabetes 02/18/2018 Dyslipidemia Essential (primary) hypertension Fall from bed, initial encounter Hypothyroidism Prediabetes Recurrent falls Tendonitis of left rotator cuff Unspecified osteoarthritis, unspecified site Vitamin D deficiency Surgical History Surgical History History of bilateral knee replacement 1990s History of cholecystectomy (~1979) Family History Family History Mother Stomach cancer Sibling Lung cancer Social History Social History Smoking status: Never smoker Second hand tobacco smoke exposure: No Smoking end date: 09/15/69 Alcohol intake: never Substance use: never Substance use type: does not use Lack of Transportation: No Lack of Food: Never True Current Housing: I Have Housing Concerned About Future Housing: No Difficulty Paying Gas/Electric Bills: No Difficulty Paying for Meds: No Currently Unemployed: No Education: Decline to Answer Difficulty w/ Childcare or Family Care: No Living arrangements: assisted living Additional living arrangements comments: Occupation/Education: retired Gender identity (if verbalized by the patient): Female Sexual Orientation (if Verbalized by the Patient): Straight or Heterosexual Spiritual care concerns: No
== END 2023-07-23 16:48 | disposition home or self-care (01) ==
PROVIDERS: Emergency Provider Emergency Medicine; PCP Family Medicine
DX: S79.911A Unspecified injury of right hip, initial encounter (principal); S49.92XA Unspecified injury of left shoulder and upper arm, initial encounter; J44.9 Chronic obstructive pulmonary disease, unspecified; I10 Essential (primary) hypertension; F03.90 Unspecified dementia, unspecified severity, without behavioral disturbance, psychotic disturbance, mood disturbance, and anxiety; E11.9 Type 2 diabetes mellitus without complications; E78.5 Hyperlipidemia, unspecified; E03.9 Hypothyroidism, unspecified; E55.9 Vitamin D deficiency, unspecified; M19.012 Primary osteoarthritis, left shoulder; M19.011 Primary osteoarthritis, right shoulder; M16.12 Unilateral primary osteoarthritis, left hip; M18.9 Osteoarthritis of first carpometacarpal joint, unspecified; Z96.653 Presence of artificial knee joint, bilateral; Z87.891 Personal history of nicotine dependence; Z90.49 Acquired absence of other specified parts of digestive tract; Z79.82 Long term (current) use of aspirin; I44.0 Atrioventricular block, first degree; I45.10 Unspecified right bundle-branch block; W01.0XXA Fall on same level from slipping, tripping and stumbling without subsequent striking against object, initial encounter
CPT/HCPCS: 70450; 73030; 73502; 82948; 93005; 99284

== ENCOUNTER 2024-04-04 20:39 | Observation (INO) | payer MEDICARE, MEDICAID, SELFPAY ==
--- NOTE | ~2024-04-04 | XR_ITS ---
XR chest 1V portable 04/05/2024 09:10 Indication: Leukocytosis Procedure: AP portable chest Comparison: Comparison to multiple prior studies sequentially, with oldest reviewed study dated 08/15. Findings: Cardiomegaly. Large hiatal hernia. No focal air space disease, pulmonary edema, pleural eff usion or suspected pneumothorax. Severe osteoarthritis of the shoulders. Impression: 1: No acute cardiopulmonary disease. 2: Large hiatal hernia. 3: Cardiomegaly. Reviewed, dictated and finalized at location B. Impression: 1: No acute cardiopulmonary disease. 2: Large hiatal hernia. 3: Cardiomegaly.
--- NOTE | ~2024-04-04 | CT_ITS ---
CT brain wo con Ordering provider: Thad Alexandra MD History: 83 years Female with . Transient tremors . Comparison: July 23, 2023 Technique: CT of the head without contrast. Radiation reduction technique utilized. DLP is 681mGy-cm. FINDINGS: BRAIN PARENCHYMA AND CSF SPACES: Mild leukoaraiosis and diffuse cortical atrophy. Mild atheromatous d isease. No midline shift, mass effect or hemorrhage. The brain parenchyma and CSF spaces are otherwi se normal. VISUALIZED PARANASAL SINUSES: Well aerated. MASTOIDS: Well aerated. BONES: The bones appear intact. SOFT TISSUES: Visualized nasopharynx is normal. Superficial soft tissues are normal. IMPRESSION: No acute intracranial findings. Reviewed, dictated and finalized at location A.
[2024-04-04 20:39] VITALS: BP 149/87; PULSE 95; RESP 16; TEMP 36.8; O2SAT 97
[2024-04-04 20:47] VITALS: PULSE 100
--- NOTE | 2024-04-04 20:47 | ECG_ITS ---
Test Date: 2024-04-04 20:52:31 Measurements Intervals [place] Rate: 105 P: 56 [place]: 230 QRS: -42 QRSD: 90 T: 52 QT: 421 QTc: 559 Interpretive Statements SINUS TACHYCARDIA WITH FIRST DEGREE AV BLOCK LEFT AXIS DEVIATION POSSIBLE LEFT ATRIAL ENLARGEMENT INCOMPLETE RIGHT BUNDLE BRANCH BLOCK LOW QRS VOLTAGE IN PRECORDIAL LEADS POOR R WAVE PROGRESSION BORDERLINE ST-T WAVE ABNORMALITY- HIGH LATERAL LEADS BASELINE ARTIFACT- I, II, III, AVR, AVL, AVF, V1-V2 BORDERLINE ECG No previous ECG available for comparison Electronically Signed On 04-05-2024 06:24:08 CDT by Silvio Valadez D.O.
[2024-04-04 20:48] VITALS: BP 149/87; PULSE 99; RESP 27; O2SAT 99
[2024-04-04 21:49] LABS: Basophils Percent Auto 0.1 % (0.2-1.2); Eosinophils Percent Auto 0.3 % (0-4.4); Hematocrit 43.2 % (37.0-47.0); Immature Granulocyte Absolute 0.05 K/mm3 (0.00-0.031); Immature Granulocyte Percent A 0.5 % (0-0.5); Immature Platelet Fraction Pct 4.3 % (0.9-11.2); Lymphocytes Absolute Auto 0.58 K/mm3 (0.9-3.2); Lymphocytes Percent Auto 5.4 % (18.3-44.2); Mean Corpuscular HGB Conc 34.7 g/dl (32-36); Mean Corpuscular Hemoglobin 29.7 pg (26-34); Mean Corpuscular Volume 85.5 fl (80-100); Mean Platelet Volume 10.5 fl (7.4-10.4); Monocytes Absolute Auto 0.4 K/mm3 (0.1-0.6); Neutrophils Absolute Auto 9.6 K/mm3 (1.3-6.7); Neutrophils Percent Auto 89.7 % (45.5-73.1); Platelet Count Result 128 k/mm3 (150-375); Red Blood Count 5.05 M/mm3 (4.2-5.4); Red Cell Distribution Width 13.1 % (11.5-14.5); White Blood Count 10.7 K/mm3 (4.5-10.0)
[2024-04-04 21:57] LABS: Prothrombin Time 13.3 Seconds (11.1-14.7)
[2024-04-04 21:58] LABS: Partial Thromboplastin Time 25.7 Seconds (22.3-36.8)
[2024-04-04 22:00] LABS: Anion Gap 13 mmol/L (4-12); Blood Urea Nitrogen 14 mg/dL (7-17); Calcium 8.7 mg/dL (8.4-10.2); Carbon Dioxide 26 mmol/L (22-30); Chloride 95 mmol/L (98-107); Estimated CRCL calculation 35 ml/min; Estimated Glomerular Filt Rate 47; Glucose 104 mg/dL (65-110); Potassium 3.1 mmol/L (3.4-5.0); Sodium 134 mmol/L (137-145)
[2024-04-04 22:43] VITALS: BP 137/81; PULSE 113; RESP 37; O2SAT 92
[2024-04-04] MEDS: SODIUM CHLORIDE 0.9% IV 2,000 ML 999 ML IV CONT (22:56)
[2024-04-04 23:34] LABS: Influenza A QL RT-PCR Negative (Negative); Influenza B QL RT-PCR Negative (Negative); RSV RNA, RT-PCR Negative (Negative); SARS-CoV-2 RNA PCR Negative (Negative)
[2024-04-04 23:43] VITALS: BP 140/72; PULSE 101; RESP 33; O2SAT 91
[2024-04-04 23:44] VITALS: O2SAT 92
--- NOTE | 2024-04-04 23:49 | ED.GENADULT ---
HPI - General Adult General Chief complaint: Neuro Symptoms/Deficit Stated complaint: TREMMORS, SHAKING Time Seen by Provider: 04/04/24 21:39 History of Present Illness HPI narrative: This is a 83-year-old female presenting ED with chief complaint of tremors. Patient was at the half-way when she started to develop shaking at 3:00 p.m.. She said that she felt very cold while this was going on. The feeling was associated with significant anxiety. The tremors then resolved on their own without intervention. She is denying fevers chills chest pain, difficulty breathing abdominal pain or dysuria. She notes that she has not felt well for several days and not been eating very well. No nausea vomiting or diarrhea. Related Data Home Medications Medication Instructions Recorded Confirmed lancets (Ultra Thin Lancets) #50 ea 08/09/19 02/03/24 psyllium husk 0.4 gram capsule 0.4 gm PO DAILY 10/25/19 02/03/24 (Daily Fiber) memantine 10 mg tablet 10 mg PO BID 03/28/21 02/03/24 donepezil 10 mg tablet 10 mg PO QHS 04/02/22 02/03/24 aspirin 81 mg tablet,delayed 81 mg PO DAILY 06/28/22 02/03/24 release tizanidine 2 mg capsule 2 mg PO TID PRN muscle spasticity 06/28/22 02/03/24 escitalopram oxalate 20 mg tablet 20 mg PO DAILY 11/28/22 02/03/24 hydrocodone 5 mg-acetaminophen 325 1 tablet PO BID 11/28/22 02/03/24 mg tablet olanzapine 2.5 mg tablet 2.5 mg PO QAM 11/28/22 02/03/24 olanzapine 5 mg tablet 5 mg PO QHS 11/28/22 02/03/24 sennosides 8.6 mg tablet (senna) 8.6 mg PO QHS 11/28/22 02/03/24 hydroxyzine HCl 25 mg tablet 25 mg PO QHS 06/05/23 02/03/24 mirtazapine 15 mg tablet 15 mg PO QHS 08/11/23 02/03/24 Allergies Allergy/AdvReac Type Severity Reaction Status Date / Time azithromycin Allergy Unknown Diarrhea Verified 02/03/24 10:01 codeine Allergy Unknown Nausea Verified 02/03/24 10:01 Penicillins Allergy Unknown Skin Verified 02/03/24 10:01 irritation [facility] Past Medical History Medical History Anxiety Arthritis of carpometacarpal (CMC) joint of left thumb Bilateral shoulder region arthritis Chronic low back pain with sciatica 12/16/2018 Closed fracture of right proximal humerus COPD (chronic obstructive pulmonary disease) Dementia Depression Dyslipidemia Essential (primary) hypertension Hypothyroidism Metacarpal bone fracture Osteopenia Prediabetes Tendonitis of left rotator cuff Unspecified osteoarthritis, unspecified site Vitamin D deficiency Surgical History Surgical History History of bilateral knee replacement 1990s History of cholecystectomy (~1979) Family History Family History Mother Stomach cancer Sibling Lung cancer Social History Social History Smoking status: Never smoker Second hand tobacco smoke exposure: No Smoking end date: 09/15/69 Alcohol intake: never Substance use: never Substance use type: does not use Lack of Transportation: No Lack of Food: Never True Current Housing: I Have Housing Concerned About Future Housing: No Difficulty Paying Gas/Electric Bills: No Difficulty Paying for Meds: No Currently Unemployed: No Education: Decline to Answer Difficulty w/ Childcare or Family Care: No Living arrangements: assisted living Additional living arrangements comments: Occupation/Education: retired Gender identity (if verbalized by the patient): Female Sexual Orientation (if Verbalized by the Patient): Straight or Heterosexual Spiritual care concerns: No Exam Narrative: APPEARANCE: No apparent distress. A&O x3 Head: atraumatic. EYES: EOMI, NOSE: Atraumatic NECK: Trachea midline RESPIRATORY: No increased rate of breathing clear to auscultation CARDIOVASCULAR: Tachycardic, no peripheral edema ABDOMINAL: Non-distended soft nontender MUSCULOSKELETAl: No obvious deformities NEURO: Alert. Moving 4/4 extremities, no tremors SKIN:: Warm, dry. Normal color PSYCHIATRIC: Normal affect Course Vital Signs Vital signs: Vital Signs Temperature 98.2 F 04/04/24 20:39 Pulse Rate 95 04/04/24 20:39 Respiratory Rate 16 04/04/24 20:39 Blood Pressure 149/87 H 04/04/24 20:39 Pulse Oximetry 97 04/04/24 20:39 Oxygen Delivery Room Air 04/04/24 20:39 Temperature 98.2 F 04/04/24 20:39 Pulse Rate 82 04/05/24 00:45 Respiratory Rate 29 H 04/05/24 00:45 Blood Pressure 130/87 04/05/24 00:45 Pulse Oximetry 93 04/05/24 00:46 Oxygen Delivery Room Air 04/05/24 00:46 Oxygen Flow Rate 1 04/05/24 00:38 Medical Decision Making MDM Narrative Medical decision making narrative: -Course: A 3-year-old female presenting with tremors (rigors?). Tremors had resolved by she emergency department. However patient was tachycardic in the 120s upon arrival. Full sepsis workup has been ordered. Given 2 L normal saline. Patient's heart rate improved with fluids. Urine is indicative infection. Started on ceftriaxone. Patient has slight TATUM. Hypokalemic which was repleted orally. Initial lactic 2.4. Will repeat after fluid resusc. patient will be admitted to the hospital for management of urinary tract infection and dehydration. -DDX includes but is not limited to: Sepsis, dehydration, anxiety UTI, pneumonia, stroke -Social determinants of health: senior living resident, denies drugs or alcohol -Independent interpretation of studies: Labs reviewed CT head negative Viral swabs negative Independent EKG interpretation: Rhythm [sinus], Rate [105], [place] -[normal], [place] -[normal], QRS [narrow], QTC [normal], T waves -[negative for concerning inversions], ST Segments - [Negative for concerning elevations] Final interpretations: Sinus tach -Interventions: 2 L normal saline, 40 mEq potassium, ceftriaxone -Shared decision making / Disposition: Admitted Vital Signs Vital Signs: Vital Signs Temperature 98.2 F 04/04/24 20:39 Pulse Rate 95 04/04/24 20:39 Respiratory Rate 16 04/04/24 20:39 Blood Pressure 149/87 H 04/04/24 20:39 Pulse Oximetry 97 04/04/24 20:39 Oxygen Delivery Room Air 04/04/24 20:39 Temperature 98.2 F 04/04/24 20:39 Pulse Rate 82 04/05/24 00:45 Respiratory Rate 29 H 04/05/24 00:45 Blood Pressure 130/87 04/05/24 00:45 Pulse Oximetry 93 04/05/24 00:46 Oxygen Delivery Room Air 04/05/24 00:46 Oxygen Flow Rate 1 04/05/24 00:38 Lab Data 04/04/24 21:39 04/04/24 21:39 Labs: Lab Results 04/04/24 04/04/24 04/05/24 Range/Units 21:39 22:52 00:01 WBC 10.7 H (4.5-10.0) K/mm3 RBC 5.05 (4.2-5.4) M/mm3 Hgb 15.0 (12.0-15.0) g/dL Hct 43.2 (37.0-47.0) % MCV 85.5 (80-100) fl MCH 29.7 (26-34) pg MCHC 34.7 (32-36) g/dl RDW 13.1 (11.5-14.5) % Plt Count 128 L (150-375) k/mm3 MPV 10.5 H (7.4-10.4) fl Immature Gran % (Auto) 0.5 (0-0.5) % Neut % (Auto) 89.7 H (45.5-73.1) % Lymph % (Auto) 5.4 L (18.3-44.2) % [place] % (Auto) 4.0 (2.6-8.5) % Eos % (Auto) 0.3 (0-4.4) % Baso % (Auto) 0.1 L (0.2-1.2) % Lymph # (Auto) 0.58 L (0.9-3.2) K/mm3 [place] # (Auto) 0.4 (0.1-0.6) K/mm3 Eos # (Auto) 0.0 (0-0.3) K/mm3 Baso # (Auto) 0.0 (0.0-0.1) K/mm3 Abs Immat Gran (auto) 0.05 H (0.00-0.031) K/mm3 Absolute Neuts (auto) 9.6 H (1.3-6.7) K/mm3 Absolute Nucleated RBC 0.000 (0.0-0.012) K/mm3 Nucleated RBC % 0.0 (0.0-0.2) % % Immature Plt Fraction 4.3 (0.9-11.2) % PT 13.3 (11.1-14.7) Seconds INR 1.0 APTT 25.7 (22.3-36.8) Seconds Sodium 134 L (137-145) mmol/L Potassium 3.1 L (3.4-5.0) mmol/L Chloride 95 L (98-107) mmol/L Carbon Dioxide 26 (22-30) mmol/L Anion Gap 13 H (4-12) mmol/L BUN 14 D (7-17) mg/dL Creatinine 1.10 H (0.7-1.0) mg/dL Estim Creat Clear Calc 35 ml/min Estimated GFR 47 L (59 - ) Glucose 104 (65-110) mg/dL Lactic Acid (0.7-2.0) mmol/L Calcium 8.7 (8.4-10.2) mg/dL Urine Color Yellow (Yellow) Urine Appearance Cloudy H (Clear) Urine pH 6.5 (5.0-9.0) Ur Specific [place] 1.014 (1.001-1.035) Urine Protein Trace (Negative) mg/dL Urine Glucose (UA) Negative (Negative) mg/dL Urine Ketones Negative (Negative) mg/dL Ur Blood (Man) Negative (Negative) Urine Nitrate Negative (Negative) Urine Bilirubin Negative (Negative) Urine Urobilinogen 0.2 (<2.0) mg/dL Leukocyte Esterase Rfl 1+ H (Negative) KUSUM/UL Urine RBC 0-2 (0-2) /hpf Urine WBC 21-50 H (0-3) /hpf Ur Squamous Epith Cells None seen (Few) /hpf Urine Bacteria 4+ /hpf Urine Casts 0-2 Influenza A (RT-PCR) Negative (Negative) Influenza B (RT-PCR) Negative (Negative) RSV (RT-PCR) Negative (Negative) SARS-CoV-2 RNA (RT-PCR) Negative (Negative) 04/05/24 Range/Units 00:08 WBC (4.5-10.0) K/mm3 RBC (4.2-5.4) M/mm3 Hgb (12.0-15.0) g/dL Hct (37.0-47.0) % MCV (80-100) fl MCH (26-34) pg MCHC (32-36) g/dl RDW (11.5-14.5) % Plt Count (150-375) k/mm3 MPV (7.4-10.4) fl Immature Gran % (Auto) (0-0.5) % Neut % (Auto) (45.5-73.1) % Lymph % (Auto) (18.3-44.2) % [place] % (Auto) (2.6-8.5) % Eos % (Auto) (0-4.4) % Baso % (Auto) (0.2-1.2) % Lymph # (Auto) (0.9-3.2) K/mm3 [place] # (Auto) (0.1-0.6) K/mm3 Eos # (Auto) (0-0.3) K/mm3 Baso # (Auto) (0.0-0.1) K/mm3 Abs Immat Gran (auto) (0.00-0.031) K/mm3 Absolute Neuts (auto) (1.3-6.7) K/mm3 Absolute Nucleated RBC (0.0-0.012) K/mm3 Nucleated RBC % (0.0-0.2) % % Immature Plt Fraction (0.9-11.2) % PT (11.1-14.7) Seconds INR APTT (22.3-36.8) Seconds Sodium (137-145) mmol/L Potassium (3.4-5.0) mmol/L Chloride (98-107) mmol/L Carbon Dioxide (22-30) mmol/L Anion Gap (4-12) mmol/L BUN (7-17) mg/dL Creatinine (0.7-1.0) mg/dL Estim Creat Clear Calc ml/min Estimated GFR (59 - ) Glucose (65-110) mg/dL Lactic Acid 2.4 H (0.7-2.0) mmol/L Calcium (8.4-10.2) mg/dL Urine Color (Yellow) Urine Appearance (Clear) Urine pH (5.0-9.0) Ur Specific [place] (1.001-1.035) Urine Protein (Negative) mg/dL Urine Glucose (UA) (Negative) mg/dL Urine Ketones (Negative) mg/dL Ur Blood (Man) (Negative) Urine Nitrate (Negative) Urine Bilirubin (Negative) Urine Urobilinogen (<2.0) mg/dL Leukocyte Esterase Rfl (Negative) KUSUM/UL Urine RBC (0-2) /hpf Urine WBC (0-3) /hpf Ur Squamous Epith Cells (Few) /hpf Urine Bacteria /hpf Urine Casts Influenza A (RT-PCR) (Negative) Influenza B (RT-PCR) (Negative) RSV (RT-PCR) (Negative) SARS-CoV-2 RNA (RT-PCR) (Negative) Discharge Plan Discharge Clinical Impression: Acute UTI, Acute hypokalemia, TATUM (acute kidney injury) Patient Disposition: Still a Patient Condition: Stable Prescriptions: No Action (DME) lancets [Ultra Thin Lancets] Misc See Rx Instructions .ROUTE .MEDSUPPLY Qty: 50 Rx Instructions: As directed donepezil 10 mg tablet 10 mg PO QHS escitalopram oxalate 20 mg tablet 20 mg PO DAILY hydrocodone-acetaminophen 5-325 mg tablet 1 tablet PO BID olanzapine 5 mg tablet 5 mg PO QHS sennosides [senna] 8.6 mg tablet 8.6 mg PO QHS ibuprofen 600 mg tablet 600 mg PO BID PRN (Reason: pain) Qty: 60 0RF aspirin 81 mg tablet,delayed release (DR/EC) 81 mg PO DAILY tizanidine 2 mg capsule 2 mg PO TID MDD rx PRN (Reason: muscle spasticity) lidocaine 4 % adhesive patch,medicated 1 patch topical DAILY PRN (Reason: pain) Qty: 30 4RF fluticasone propionate [Flonase Allergy Relief] 50 mcg/actuation spray,suspension 2 spray intranasal DAILY PRN (Reason: allergy symptoms) Qty: 9.9 5RF Rx Instructions: administer into each nostril ibandronate [Boniva] 150 mg tablet 150 mg PO MONTHLY Qty: 3 4RF hydroxyzine HCl 25 mg tablet 25 mg PO QHS doxycycline hyclate 100 mg tablet 100 mg PO BID Qty: 20 0RF albuterol sulfate 2.5 mg /3 mL (0.083 %) solution for nebulization 2.5 mg CNTNEBULIZ Q4-6H PRN (Reason: shortness of breath or wheezing) Qty: 18 0RF psyllium husk [Daily Fiber] 0.4 gram capsule 0.4 gm PO DAILY olanzapine 2.5 mg tablet 2.5 mg PO QAM memantine 10 mg tablet 10 mg PO BID mirtazapine 15 mg tablet 15 mg PO QHS cholecalciferol (vitamin D3) 50 mcg (2,000 unit) tablet 50 mcg PO DAILY Qty: 90 2RF indapamide 2.5 mg tablet 2.5 mg PO DAILY Qty: 90 2RF levothyroxine 100 mcg tablet 100 mcg PO DAILY Qty: 90 1RF irbesartan 300 mg tablet 300 mg PO DAILY Qty: 90 2RF omeprazole 20 mg capsule,delayed release(DR/EC) 20 mg PO BID Qty: 180 1RF atorvastatin 80 mg tablet 80 mg PO DAILY Qty: 90 1RF (DME) True Metrix Glucose Test Strip Strip See Rx Instructions .ROUTE .MEDSUPPLY Qty: 10 3RF Rx Instructions: As directed (DME) lancets [Easy Touch Safety Lancets] 30 gauge misc See Rx Instructions .Route Qty: 100 2RF Rx Instructions: Use to check BS once daily. Breo Ellipta 200-25 mcg/dose blister with device 1 inh INHALATION DAILY Qty: 90 1RF Follow-up/Referrals: Mariola To MD [Primary Care Provider] -
[2024-04-05] VITALS (9 sets, daily range): BP systolic 128–140; BP diastolic 60–87; PULSE 76–102; RESP 20–29; TEMP 36.6; O2SAT 93–99; BMI 34.0
[2024-04-05 00:10] LABS: Appearance Urine Cloudy (Clear); Bacteria Urine 4+ /hpf; Bilirubin Urine Negative (Negative); Blood Urine Negative (Negative); Color Urine Yellow (Yellow); Glucose Urine UA Negative (Negative); Ketones Urine Negative (Negative); Leukocyte Esterase Ur 1+ LEU/UL (Negative); Nitrate Urine Negative (Negative); Non Pathogenic Casts 0-2; Protein Urine Trace mg/dL (Negative); RBC Urine 0-2 /hpf (0-2); Specific Grav Ur 1.014 (1.001-1.035); Squamous Epithelial Cell Urine None Seen /hpf (Few); WBC Urine 21-50 /hpf (0-3); pH Urine 6.5 (5.0-9.0)
[2024-04-05 00:23] LABS: Urobilinogen Urine 0.2 mg/dL (<2.0)
[2024-04-05] MEDS: POTASSIUM CHLORIDE 20 MEQ PACKET (FOR LIQUID) 40 MEQ PO (00:24)
[2024-04-05 00:27] LABS: Add Urine Microscopic? YES
[2024-04-05 00:36] LABS: Lactic Acid Reflex 2.4 mmol/L (0.7-2.0)
[2024-04-05] MEDS: LACTATED RINGERS 1,000 ML 75 ML IV CONT (02:43)
[2024-04-05 03:21] LABS: Reflex Lactic Acid Yes or No Add Lactic
--- NOTE | 2024-04-05 04:08 | ADMGEN ---
This patient, Juliana Grimes, was admitted to [facility] Surg Room 328-01. Patient/family oriented to hospital policies and general routines including ID bracelet, bed and alarms, visiting hours, pain management, procedures, bathroom and other care routines, personal items, smoking policy, room service/diet, and visiting hours. Information on how to activate the Rapid Response Team has been discussed. Patient/Family are encouraged to report perceived risks to care and to ask questions if they do not understand what they are told or what they should do.
[2024-04-05 04:42] LABS: Lactic Acid 2.2 mmol/L (0.7-2.0)
[2024-04-05] MEDS: ENOXAPARIN 40 MG/0.4 ML SYRINGE SUB-Q (09:23)
[2024-04-05] MEDS: PANTOPRAZOLE 40 MG TABLET PO (09:23)
[2024-04-05 10:48] LABS: Hemoglobin 12.8 g/dL (12.0-15.0); Immature Platelet Fraction Pct 4.1 % (0.9-11.2); Mean Corpuscular HGB Conc 34.6 g/dl (32-36); Mean Corpuscular Hemoglobin 29.7 pg (26-34); Mean Corpuscular Volume 85.8 fl (80-100); Mean Platelet Volume 10.8 fl (7.4-10.4); Platelet Count Result 116 k/mm3 (150-375); Red Blood Count 4.31 M/mm3 (4.2-5.4); Red Cell Distribution Width 13.1 % (11.5-14.5); White Blood Count 12.7 K/mm3 (4.5-10.0)
[2024-04-05 10:53] LABS: Lactic Acid Reflex 1.2 mmol/L (0.7-2.0)
[2024-04-05 10:57] LABS: Alanine Aminotransferase 14 U/L (6-35); Albumin Level 3.6 g/dL (3.5-5.1); Alkaline Phosphatase 79 U/L (38-126); Anion Gap 10 mmol/L (4-12); Aspartate Amino Transferase 24 U/L (14-36); Blood Urea Nitrogen 12 mg/dL (7-17); Calcium 8.1 mg/dL (8.4-10.2); Carbon Dioxide 24 mmol/L (22-30); Chloride 100 mmol/L (98-107); Estimated CRCL calculation 43 ml/min; Estimated Glomerular Filt Rate > 60; Glucose 115 mg/dL (65-110); Potassium 3.1 mmol/L (3.4-5.0); Sodium 134 mmol/L (137-145)
--- NOTE | 2024-04-05 12:18 | P.SS_ITS ---
Same Day Admit/Disch: HPI History of Present Illness Chief complaint: UTI/Dehydration Narrative: Juliana Grimes is a 83 year old female This was a pleasant 83-year-old female who presented to the emergency department from her fdc facility after reports of tremors, chills and overall not feeling well that started Friday morning prior to arrival. Patient states she was feeling anxious and chilly with weakness. Per medical chart the tremors have resolved without any intervention and no further tremors reported since arrival to the emergency department. At time of assessment patient reports she felt overall better denied any fevers to deny chest pain, shortness a breath, abdominal pain, dizziness, or fever. Initial findings to the emergency department showed CT head negative, urinary tract infection with positive leukocytes and cloudy appearance as well some dehydration. Other findings included hypokalemia 3.1. Patient was then admitted to the medical unit for further evaluation treatment. Initiated on IV fluids, Rocephin and replenish potassium. Further assessment patient after interventions states she felt back to baseline with overall improvement of all symptoms follow-up labs unremarkable other than potassium of 3.1 which was once again replenish with 60 mEq p.o. Mild TATUM resolved. Patient requesting to return back to fdc facility patient in no acute distress at time discharge sent on p.o. Bactrim will continue to monitor UA final cultures after discharge. Family and patient also reporting she has a follow-up appointment with her primary care physician today 2:30. [facility] Past Medical History Medical History Anxiety Arthritis of carpometacarpal (CMC) joint of left thumb Bilateral shoulder region arthritis Chronic low back pain with sciatica 12/16/2018 Closed fracture of right proximal humerus COPD (chronic obstructive pulmonary disease) Dementia Depression Dyslipidemia Essential (primary) hypertension Hypothyroidism Metacarpal bone fracture Osteopenia Prediabetes Tendonitis of left rotator cuff Unspecified osteoarthritis, unspecified site Vitamin D deficiency Surgical History Surgical History History of bilateral knee replacement 1990s History of cholecystectomy (~1979) Family History Family History Mother Stomach cancer Sibling Lung cancer Social History Social History Smoking status: Never smoker Second hand tobacco smoke exposure: No Smoking end date: 09/15/69 Alcohol intake: never Substance use: never Substance use type: does not use Do You Feel Safe in your Home?: Yes Lack of Transportation: No Lack of Food: Never True Current Housing: I Have Housing Concerned About Future Housing: No Difficulty Paying Gas/Electric Bills: No Difficulty Paying for Meds: No Currently Unemployed: No Education: Grade School Difficulty w/ Childcare or Family Care: No Living arrangements: assisted living Additional living arrangements comments: Occupation/Education: retired Gender identity (if verbalized by the patient): Female Sexual Orientation (if Verbalized by the Patient): Straight or Heterosexual Spiritual care concerns: No Same Day Admit/Disch: Med Pre-admit Medications Home Medications Medication Instructions Recorded Confirmed Type lancets (Ultra Thin Lancets) #50 ea 08/09/19 02/03/24 History psyllium husk 0.4 gram capsule 0.4 gm PO DAILY 10/25/19 02/03/24 History (Daily Fiber) memantine 10 mg tablet 10 mg PO BID 03/28/21 02/03/24 History cholecalciferol (vitamin D3) 50 50 mcg PO DAILY #90 tabs 08/13/21 02/03/24 Rx mcg (2,000 unit) tablet indapamide 2.5 mg tablet 2.5 mg PO DAILY #90 tabs 11/26/21 02/03/24 Rx levothyroxine 100 mcg tablet 100 mcg PO DAILY #90 tabs 12/31/21 02/03/24 Rx irbesartan 300 mg tablet 300 mg PO DAILY #90 tabs 03/04/22 02/03/24 Rx donepezil 10 mg tablet 10 mg PO QHS 04/02/22 02/03/24 History aspirin 81 mg tablet,delayed 81 mg PO DAILY 06/28/22 02/03/24 History release fluticasone propionate 50 2 spray intranasal DAILY PRN 06/28/22 02/03/24 Rx mcg/actuation nasal allergy symptoms #9.9 mL spray,suspension (Flonase Allergy Relief) ibandronate 150 mg tablet (Boniva) 150 mg PO MONTHLY #3 tabs 06/28/22 02/03/24 Rx lidocaine 4 % topical patch 1 patch topical DAILY PRN pain #30 06/28/22 02/03/24 Rx ea tizanidine 2 mg capsule 2 mg PO TID PRN muscle spasticity 06/28/22 02/03/24 History omeprazole 20 mg capsule,delayed 20 mg PO BID #180 caps 08/30/22 02/03/24 Rx release escitalopram oxalate 20 mg tablet 20 mg PO DAILY 11/28/22 02/03/24 History hydrocodone 5 mg-acetaminophen 325 1 tablet PO BID 11/28/22 02/03/24 History mg tablet ibuprofen 600 mg tablet 600 mg PO BID PRN pain #60 tabs 11/28/22 02/03/24 Rx olanzapine 2.5 mg tablet 2.5 mg PO QAM 11/28/22 02/03/24 History olanzapine 5 mg tablet 5 mg PO QHS 11/28/22 02/03/24 History sennosides 8.6 mg tablet (senna) 8.6 mg PO QHS 11/28/22 02/03/24 History atorvastatin 80 mg tablet 80 mg PO DAILY #90 tabs 12/09/22 02/03/24 Rx blood sugar diagnostic (True #10 ea 03/05/23 02/03/24 Rx Metrix Glucose Test Strip) lancets 30 gauge (Easy Touch #100 ea 04/16/23 02/03/24 Rx Safety Lancets) fluticasone furoate 200 1 inh inhalation DAILY #90 ea 05/26/23 02/03/24 Rx mcg-vilanterol 25 mcg/dose inhalation powder (Breo Ellipta) hydroxyzine HCl 25 mg tablet 25 mg PO QHS 06/05/23 02/03/24 History mirtazapine 15 mg tablet 15 mg PO QHS 08/11/23 02/03/24 History sulfamethoxazole 800 1 tablet PO Q12H #10 tabs 04/05/24 Rx mg-trimethoprim 160 mg tablet Review of Systems Review of Systems All systems reviewed & are unremarkable except as noted in HPI and below Exam Narrative: Physical Exam: * GENERAL: Alert and oriented x 3. No acute distress. * EYES: EOMI. No scleral icterus. PERRLA. * HEENT: Moist mucous membranes. * LUNGS: Clear to auscultation bilaterally. No accessory muscle use. * CARDIOVASCULAR: Regular rate and rhythm. No murmur. No JVD. S1-S2 * ABDOMEN: Soft, non tenderness and non-distended. No palpable masses. * EXTREMITIES: No edema. Non-tender * SKIN: No rashes or lesions. Skin warm, dry. * NEUROLOGIC: No focal neurological deficits. CN II-XII grossly intact * PSYCHIATRIC: Appropriate mood and affect. Good judgement and insight. No visual or auditory hallucinations. No suicidal or homicidal ideation. DS: Data Data Completed and Pending Labs on day of discharge: Labs from last 24 hours 04/05/24 04/05/24 04/05/24 10:24 04:01 00:08 WBC 12.7 H RBC 4.31 Hgb 12.8 Hct 37.0 MCV 85.8 MCH 29.7 MCHC 34.6 RDW 13.1 Plt Count 116 L MPV 10.8 H Immature Gran % (Auto) Neut % (Auto) Lymph % (Auto) [place] % (Auto) Eos % (Auto) Baso % (Auto) Lymph # (Auto) [place] # (Auto) Eos # (Auto) Baso # (Auto) Abs Immat Gran (auto) Absolute Neuts (auto) Absolute Nucleated RBC Nucleated RBC % % Immature Plt Fraction 4.1 PT INR APTT Sodium 134 L Potassium 3.1 L Chloride 100 Carbon Dioxide 24 Anion Gap 10 BUN 12 Creatinine 0.80 Estim Creat Clear Calc 43 Estimated GFR > 60 Glucose 115 H Lactic Acid 1.2 2.2 H 2.4 H Calcium 8.1 L Total Bilirubin 1.0 AST 24 ALT 14 Alkaline Phosphatase 79 Total Protein 7.0 Albumin 3.6 Urine Color Urine Appearance Urine pH Ur Specific [place] Urine Protein Urine Glucose (UA) Urine Ketones Ur Blood (Man) Urine Nitrate Urine Bilirubin Urine Urobilinogen Leukocyte Esterase Rfl Urine RBC Urine WBC Ur Squamous Epith Cells Urine Bacteria Urine Casts Influenza A (RT-PCR) Influenza B (RT-PCR) RSV (RT-PCR) SARS-CoV-2 RNA (RT-PCR) 04/05/24 04/04/24 04/04/24 00:01 22:52 21:39 WBC 10.7 H RBC 5.05 Hgb 15.0 Hct 43.2 MCV 85.5 MCH 29.7 MCHC 34.7 RDW 13.1 Plt Count 128 L MPV 10.5 H Immature Gran % (Auto) 0.5 Neut % (Auto) 89.7 H Lymph % (Auto) 5.4 L [place] % (Auto) 4.0 Eos % (Auto) 0.3 Baso % (Auto) 0.1 L Lymph # (Auto) 0.58 L [place] # (Auto) 0.4 Eos # (Auto) 0.0 Baso # (Auto) 0.0 Abs Immat Gran (auto) 0.05 H Absolute Neuts (auto) 9.6 H Absolute Nucleated RBC 0.000 Nucleated RBC % 0.0 % Immature Plt Fraction 4.3 PT 13.3 INR 1.0 APTT 25.7 Sodium 134 L Potassium 3.1 L Chloride 95 L Carbon Dioxide 26 Anion Gap 13 H BUN 14 D Creatinine 1.10 H Estim Creat Clear Calc 35 Estimated GFR 47 L Glucose 104 Lactic Acid Calcium 8.7 Total Bilirubin AST ALT Alkaline Phosphatase Total Protein Albumin Urine Color Yellow Urine Appearance Cloudy H Urine pH 6.5 Ur Specific [place] 1.014 Urine Protein Trace Urine Glucose (UA) Negative Urine Ketones Negative Ur Blood (Man) Negative Urine Nitrate Negative Urine Bilirubin Negative Urine Urobilinogen 0.2 Leukocyte Esterase Rfl 1+ H Urine RBC 0-2 Urine WBC 21-50 H Ur Squamous Epith Cells None seen Urine Bacteria 4+ Urine Casts 0-2 Influenza A (RT-PCR) Negative Influenza B (RT-PCR) Negative RSV (RT-PCR) Negative SARS-CoV-2 RNA (RT-PCR) Negative Imaging Radiologist's impression: XR chest 1V portable 04/05/2024 09:10 Indication: Leukocytosis Procedure: AP portable chest Comparison: Comparison to multiple prior studies sequentially, with oldest reviewed study dated 08/31/2011. Findings: Cardiomegaly. Large hiatal hernia. No focal air space disease, pulmon mary edema, pleural effusion or suspected pneumothorax. Severe osteoarthritis of the shoulders. Impression: 1: No acute cardiopulmonary disease. 2: Large hiatal hernia. 3: Cardiomegaly. CT brain wo con Ordering provider: Thad Alexandra MD History: 83 years Female with . Transient tremors . Comparison: July 23, 2023 Technique: CT of the head without contrast. Radiation reduction technique utilized. DLP is 681mGy-cm. FINDINGS: BRAIN PARENCHYMA AND CSF SPACES: Mild leukoaraiosis and diffuse cortical atrophy. Mild atheromatous disease. No midline shift, mass effect or hemorrhage. The brain parenchyma and CSF spaces are otherwise normal. VISUALIZED PARANASAL SINUSES: Well aerated. MASTOIDS: Well aerated. BONES: The bones appear intact. SOFT TISSUES: Visualized nasopharynx is normal. Superficial soft tissues are normal. IMPRESSION: No acute intracranial findings. DS: Summary Hospital Course Reason for hospitalization: UTI and dehydration Hospital Course: This was a pleasant 83-year-old female who presented to the emergency department from her fdc facility after reports of tremors, chills and overall not feeling well that started Friday morning prior to arrival. Patient states she was feeling anxious and chilly with weakness. Per medical chart the tremors have resolved without any intervention and no further tremors reported since arrival to the emergency department. At time of assessment patient reports she felt overall better denied any fevers to deny chest pain, shortness a breath, abdominal pain, dizziness, or fever. Initial findings to the emergency department showed CT head negative, urinary tract infection with positive leukocytes and cloudy appearance as well some dehydration. Other findings included hypokalemia 3.1. Patient was then admitted to the medical unit for further evaluation treatment. Initiated on IV fluids, Rocephin and replenish potassium. Further assessment patient after interventions states she felt back to baseline with overall improvement of all symptoms follow-up labs unremarkable other than potassium of 3.1 which was once again replenish with 60 mEq p.o. Mild TATUM resolved. Patient requesting to return back to fdc facility p atient in no acute distress at time discharge sent on p.o. Bactrim will continue to monitor UA final cultures after discharge. Family and patient also reporting she has a follow-up appointment with her primary care physician today 2:30. Status at Discharge Functional status at discharge: uses cane/walker Overall status at discharge: patient is back to baseline Time Spent with Patient Time attestation: Total time spent providing and/or coordinating discharge services: Time spent: Greater than 30 minutes DS: Admitting Diagnosis Discharge Date 04/05/2024 Admitting Diagnosis UTI/dehydration/hypokalemia DS: Discharge Diagnosis Discharge Diagnosis Plan UTI/Dehydration/hypokalemia IV Fluids, Rocephin transition to p.o. Bactrim, replenished potassium Discharge Plan Discharge Attending physician on discharge: Elizabeth Cleveland Discharging Clinician: Candie Plaza Anticipated Discharge Date/Time: 04/05/24 12:09 Patient Disposition: NH Alf/Asst Living Activity: may shower and as tolerated Diet: heart healthy Discharge Instructions: How can you care for yourself at home? ? Keep track of any new symptoms or changes in your symptoms. ? Rest until you feel better. ? Be safe with medicines. Take your medicines exactly as prescribed. Call your doctor if you think you are having a problem with your medicine. ? Do not drive after taking a prescription pain medicine. ? Ensure to follow-up with primary care physician as indicated and provide updated medication list provided to you at discharge. When should you call for help? Call 911 anytime you think you may need emergency care. For example, call if: ? You passed out (lost consciousness). Call your doctor now or seek immediate medical care if: ? You have new symptoms like fever, difficulty breathing, Chest pain, vomiting, or rash. ? You have new or different pain. ? You are confused and are having trouble thinking clearly. ? Your symptoms are getting worse. Watch closely for changes in your health, and be sure to contact your doctor if: ? You do not get better as expected. Patient Instructions: Antibiotic Form, Dehydration (DC), Urinary Tract Infection in Women (DC), Hypokalemia (DC) Patient Language: Bolivian Stand Alone Forms: General Discharge Information Follow-up/Referrals: Mariola To MD [Primary Care Provider] - 2 Weeks Discharge Medications: New sulfamethoxazole-trimethoprim 800-160 mg tablet 1 tablet PO Q12H Qty: 10 0RF Continued (DME) lancets [Ultra Thin Lancets] Misc See Rx Instructions .ROUTE .MEDSUPPLY Qty: 50 Rx Instructions: As directed donepezil 10 mg tablet 10 mg PO QHS escitalopram oxalate 20 mg tablet 20 mg PO DAILY hydrocodone-acetaminophen 5-325 mg tablet 1 tablet PO BID olanzapine 5 mg tablet 5 mg PO QHS sennosides [senna] 8.6 mg tablet 8.6 mg PO QHS ibuprofen 600 mg tablet 600 mg PO BID PRN (Reason: pain) Qty: 60 0RF aspirin 81 mg tablet,delayed release (DR/EC) 81 mg PO DAILY tizanidine 2 mg capsule 2 mg PO TID MDD rx PRN (Reason: muscle spasticity) lidocaine 4 % adhesive patch,medicated 1 patch topical DAILY PRN (Reason: pain) Qty: 30 4RF fluticasone propionate [Flonase Allergy Relief] 50 mcg/actuation spray,suspension 2 spray intranasal DAILY PRN (Reason: allergy symptoms) Qty: 9.9 5RF Rx Instructions: administer into each nostril ibandronate [Boniva] 150 mg tablet 150 mg PO MONTHLY Qty: 3 4RF hydroxyzine HCl 25 mg tablet 25 mg PO QHS albuterol sulfate 2.5 mg /3 mL (0.083 %) solution for nebulization 2.5 mg CNTNEBULIZ Q4-6H PRN (Reason: shortness of breath or wheezing) Qty: 18 0RF psyllium husk [Daily Fiber] 0.4 gram capsule 0.4 gm PO DAILY olanzapine 2.5 mg tablet 2.5 mg PO QAM memantine 10 mg tablet 10 mg PO BID mirtazapine 15 mg tablet 15 mg PO QHS cholecalciferol (vitamin D3) 50 mcg (2,000 unit) tablet 50 mcg PO DAILY Qty: 90 2RF indapamide 2.5 mg tablet 2.5 mg PO DAILY Qty: 90 2RF levothyroxine 100 mcg tablet 100 mcg PO DAILY Qty: 90 1RF irbesartan 300 mg tablet 300 mg PO DAILY Qty: 90 2RF omeprazole 20 mg capsule,delayed release(DR/EC) 20 mg PO BID Qty: 180 1RF atorvastatin 80 mg tablet 80 mg PO DAILY Qty: 90 1RF (DME) True Metrix Glucose Test Strip Strip See Rx Instructions .ROUTE .MEDSUPPLY Qty: 10 3RF Rx Instructions: As directed (DME) lancets [Easy Touch Safety Lancets] 30 gauge misc See Rx Instructions .Route Qty: 100 2RF Rx Instructions: Use to check BS once daily. Breo Ellipta 200-25 mcg/dose blister with device 1 inh INHALATION DAILY Qty: 90 1RF Discontinued doxycycline hyclate 100 mg tablet 100 mg PO BID Qty: 20 0RF Date of admission: 04/05/24 02:19 Primary Care Provider: Mariola To Admitting Provider: Jennifer Greene Attending physician on admission: Candie Plaza Condition: Stable Hospitalist MIPS Advance Care Plan I have confirmed that the patient's Advanced Care Plan is present, code status is documented, or surrogate decision maker is listed in patient medical record.: Yes Medication Reconciliation I have utilized all available resources to obtain, update and review the patients current medications (includes all prescriptions, OTC, herbals, cannabis, and nutritional supplements).: Yes Heart Failure (Exclusion) Patient has history of Heart Transplant or Left Ventricular Assistive Device?: No IF YES, STOP HERE Heart Failure (Qualifier) Patient has current or prior documentation of LVEF less than or equal to 40%, or mod/servere depressed LVSF?: No IF NO, STOP HERE
[2024-04-05] MEDS: POTASSIUM CHLORIDE INJ 40 MEQ in SODIUM CHLORIDE 0.9% IV 500 ML 130 MEQ IVPB (12:32)
[2024-04-05] MEDS: POTASSIUM CHLORIDE 20 MEQ ER TABLET 40 MEQ PO (12:35)
[2024-04-05] MEDS: POTASSIUM CHLORIDE 20 MEQ ER TABLET PO (12:51)
== END 2024-04-05 14:00 ==
LOC: ANHED 04-05 01:41 → ANH3MEDSUR 04-05 03:35
PROVIDERS: Admitting Provider Internal Medicine; Emergency Provider Emergency Medicine; PCP Family Medicine; Visit Provider Nurse Practitioner Family
DX: N39.0 Urinary tract infection, site not specified (principal); N17.9 Acute kidney failure, unspecified; E87.6 Hypokalemia; E86.0 Dehydration; R25.1 Tremor, unspecified; I10 Essential (primary) hypertension; E78.5 Hyperlipidemia, unspecified; E03.9 Hypothyroidism, unspecified; J44.9 Chronic obstructive pulmonary disease, unspecified; Z20.822 Contact with and (suspected) exposure to COVID-19; F03.90 Unspecified dementia, unspecified severity, without behavioral disturbance, psychotic disturbance, mood disturbance, and anxiety; E55.9 Vitamin D deficiency, unspecified; R73.03 Prediabetes; F41.9 Anxiety disorder, unspecified; F32.A Depression, unspecified; Z79.82 Long term (current) use of aspirin; Z79.891 Long term (current) use of opiate analgesic; Z79.51 Long term (current) use of inhaled steroids
CPT/HCPCS: 36415; 70450; 71045; 80048; 80053; 81001; 83605; 85025; 85027; 85055; 85610; 85730; 87040; 87077; 87086; 87088; 87186; 87637; 93005; 96361; 96365; 96372; 96375; 99285; A9270; G0378; J0696; J1650; J3480; J7030; J7040; J7120

== ENCOUNTER 2024-04-26 15:38 | Outpatient (NON) | payer MEDICARE, MEDICAID, SELFPAY | END 2024-04-26 15:39 | disposition home or self-care (01) | LOC: ANHGOSHLAB 15:42 | PROVIDERS: PCP Family Medicine; Visit Provider Nurse Practitioner Family | DX: N39.0 Urinary tract infection, site not specified (principal) | CPT/HCPCS: 87077; 87086; 87186 ==

== ENCOUNTER 2024-06-17 15:37 | Outpatient (CLI) | payer MEDICARE, MEDICAID, SELFPAY ==
[2024-06-17 19:00] LABS: Basophils Percent Auto 0.1 % (0.2-1.2); Eosinophils Absolute Auto 0.1 K/mm3 (0-0.3); Eosinophils Percent Auto 1.4 % (0-4.4); Hemoglobin 14.5 g/dL (12.0-15.0); Immature Granulocyte Absolute 0.03 K/mm3 (0.00-0.031); Immature Granulocyte Percent A 0.3 % (0-0.5); Lymphocytes Percent Auto 31.1 % (18.3-44.2); Mean Corpuscular Hemoglobin 29.4 pg (26-34); Mean Corpuscular Volume 89.1 fl (80-100); Mean Platelet Volume 11.2 fl (7.4-10.4); Monocytes Absolute Auto 0.9 K/mm3 (0.1-0.6); Monocytes Percent Auto 9.8 % (2.6-8.5); Neutrophils Percent Auto 57.3 % (45.5-73.1); Platelet Count Result 172 k/mm3 (150-375); Red Blood Count 4.94 M/mm3 (4.2-5.4); Red Cell Distribution Width 13.2 % (11.5-14.5); White Blood Count 8.7 K/mm3 (4.5-10.0)
[2024-06-17 19:10] LABS: Alanine Aminotransferase 14 U/L (6-35); Alkaline Phosphatase 90 U/L (38-126); Anion Gap 6 mmol/L (4-12); Aspartate Amino Transferase 27 U/L (14-36); Bilirubin,Total 0.8 mg/dL (0.2-1.3); Blood Urea Nitrogen 17 mg/dL (7-17); Carbon Dioxide 32 mmol/L (22-30); Chloride 100 mmol/L (98-107); Estimated Glomerular Filt Rate 53; Glucose 100 mg/dL (65-110); Potassium 3.5 mmol/L (3.4-5.0); Sodium 138 mmol/L (137-145)
[2024-06-17 21:16] LABS: Hemoglobin A1C 5.8 % (<5.7)
== END 2024-06-17 15:38 | disposition home or self-care (01) ==
LOC: ANHGOSHLAB 15:38
PROVIDERS: PCP Family Medicine; Visit Provider Family Medicine
DX: R73.03 Prediabetes (principal); F03.90 Unspecified dementia, unspecified severity, without behavioral disturbance, psychotic disturbance, mood disturbance, and anxiety; I10 Essential (primary) hypertension; E03.9 Hypothyroidism, unspecified; Z79.899 Other long term (current) drug therapy
CPT/HCPCS: 36415; 80053; 83036; 84443; 85025

== ENCOUNTER 2024-11-25 21:42 | Emergency (ER) | payer MEDICARE, MEDICAID, SELFPAY ==
--- NOTE | ~2024-11-25 | XR_ITS ---
Clinical Indication: Cough PA and lateral views of the chest: Comparison: 04/05/2024 Findings: The lungs are clear, without evidence of focal consolidation or pleural effusion. Cardiome diastinal silhouette is within normal limits. Stable very large hiatal hernia. Mild compression defor mity of T10 present. Impression: Clear lungs. Stable very large hiatal hernia. Reviewed, dictated and finalized at location . Impression: Clear lungs. Stable very large hiatal hernia.
--- OUTSIDE RECORDS SUMMARY | 2024-11-25 21:45 | XMS_ITS | Continuity of Care Document ---
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 Name Role Phone Uli Moody Unavailable Unavailable Procedures Procedure Date Office/outpatient Visit, Est Office Consultation Visual Field Examination(s) Office Consultation Advance Directives Directive Yes / No Effective Date File Name No Information Encounters Encounter Description Practice Location Reason(s) For Visit Diagnoses Date Provider Providers Copied on Encounter Office/outpati ent Visit, Est [facility], [address], [place], [place], [id number], [place] tel:[phone] [facility] No Information [address] Fr[address] Mcnally. [facility], [place], [address], [place]. tel:[phone] Referring Provider: Emory Pickens, [address] [place], [place], [facility]. tel:[phone] Office Consultation [facility], [address], [place], [place], [id number], [place] tel:[phone] [facility] No Information 7 Marcell[address] Cat. [address] [place], [address], [place]. tel:[phone] Referring Provider: Uli Schwarz [address], [place], [place], [facility]. tel:[phone] Office Consultation [facility], [address], [place], [place], [id number], [place] tel:[phone] [facility] No Information Nov-3 0-200 7 Fr[address] Mcnally. [address], [place], [address], [place]. tel:[phone] Referring Provider: Malick Gupta, [address] [facility], [place], [address]. tel:[phone] Family History Family Member Type Diagnosis Age At Onset No Information Payers Payer name Insurance type Covered republican ID Authoriza tion(s) No Information Social History Type Description Quantity Date Captured Comments Sex Female Smoking Status No Information Chief Complaint And Reason For Visit No Information Reason For Referral Reason For Referral No Information History Of Present Illness Encounter Date Complaint History Of Prese nt Illness No Information Functional Status Date Functional Assessmen t No Information Instructions Date Instruction Additional Infor mation No Information Assessments Type Assessment Date No Information Patient Care Teams Name Effective Dates (start - stop) Status Members No Information
--- OUTSIDE RECORDS SUMMARY | 2024-11-25 21:46 | XMS_ITS | Clinical Summary ---
Author Organization [facility] Building [facility] Address [address] [place] [address] Care Team Providers Care Quill Fixer Name Role Phone José To MD Primary Care Provider Allergies Active Allergy Reactions Criticality Noted Date Comments Codeine Itching Low 10/02/2010 headaches headaches Penicillins Hives Medium 10/02/2010 Rash Rash Medications aspirin 81 mg enteric coated tablet Take 81 mg by mouth daily Active atorvastatin (LIPITOR) 40 mg tablet Take 40 mg by mouth nightly Active cholecalciferol (VITAMIN D-3) 2000 unit capsule Take 1 capsule (2,000 Units total) by mouth daily 1 Active escitalopram (LEXAPRO) 10 mg tablet Take 10 mg by mouth daily 1 Active fluticasone furoate-vilanteroL (Breo Ellipta) 200-25 mcg/dose diskus inhaler Take 1 puff by mouth daily 8 Active ferrous sulfate 325 mg (65 mg of elemental iron) tablet Take 325 mg by mouth daily Active indapamide (LOZOL) 2.5 mg tablet Take 1 tablet (2.5 mg total) by mouth daily 1 Active irbesartan (AVAPRO) 300 mg tablet Take 1 tablet (300 mg total) by mouth daily 1 Active levothyroxine (SYNTHROID) 100 mcg tablet Take 1 tablet (100 mcg total) by mouth daily 8 Active metFORMIN XR (GLUCOPHAGE XR) 500 mg 24 hr tablet Take 1 tablet (500 mg total) by mouth daily 1 Active OLANZapine (ZyPREXA) 2.5 mg tablet Take 2.5 mg by mouth daily 1 Active psyllium 0.4 gram capsule Take 1 capsule (0.4 g total) by mouth daily Active donepeziL (ARICEPT) 5 mg tablet Take 1 tablet (5 mg total) by mouth nightly 30 tablet 2 Active donepeziL (ARICEPT) 10 mg tablet Take 1 tablet (10 mg total) by mouth nightly 30 tablet 5 2 Active memantine (NAMENDA) 10 mg tablet Take 1 tablet (10 mg total) by mouth 2 (two) times a day 180 tablet 1 2 Active acetaminophen ER (TYLENOL) 650 mg 8 hr tablet as needed 3 Active OneTouch Verio test strips strip 3 Active fluticasone propionate (FLONASE) 50 mcg/actuation nasal spray Administer 2 sprays into each nostril daily 3 Active HYDROcodone-acetam inophen (NORCO) 5-325 mg per tablet Take 1 tablet by mouth 3 (three) times a day Taken 3 times daily at 8am, 4pm, 8pm 3 Active hydrOXYzine (ATARAX) 25 mg tablet nightly 3 Active Easy Touch Safety Lancets 30 gauge misc 3 Active mirtazapine (REMERON) 15 mg tablet 3 Active omeprazole (PriLOSEC) 20 mg capsule Take 1 capsule (20 mg total) by mouth 2 (two) times a day 3 Active senna 8.6 mg tablet 3 Active aspirin 81 mg chewable tablet 3 Active atorvastatin (LIPITOR) 80 mg tablet nightly 3 Active cholecalciferol (VITAMIN D-3) 2000 unit tablet 3 Active escitalopram (LEXAPRO) 20 mg tablet nightly 3 Active OLANZapine (ZyPREXA) 5 mg tablet 1.5 tablets (7.5 mg total) 3 Active albuterol HFA (PROVENTIL HFA,VENTOLIN HFA,PROAIR HFA) 90 mcg/actuation inhaler 4 Active furosemide (LASIX) 20 mg tablet 4 Active nitrofurantoin monohydrate (MACROBID) 100 mg capsule 4 Active sulfamethoxazole-t rimethoprim (BACTRIM DS) 800-160 mg per tablet 4 Active OLANZapine (ZyPREXA) 10 mg tablet 4 Active donepeziL (ARICEPT ODT) 10 mg disintegrating tablet Take 1 tablet (10 mg total) by mouth nightly Active ibuprofen (ADVIL,MOTRIN) 600 mg tablet Take 1 tablet (600 mg total) by mouth 2 (two) times a day as needed for pain Active ibandronate (BONIVA) 150 mg tablet Take 1 tablet (150 mg total) by mouth every 30 (thirty) days Take in AM with glass of water prior to food, don't lie down for 30 minutes. 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 Dementia Take 1 tablet (10 mg total) by mouth 2 (two) times a day Active Active Problems Problem Noted Date Diagnosed Date Dementia without behavioral disturbance 01/15/20 18 Frequent falls 01/14/2018 DKA (diabetic ketoacidoses) 01/09/2018 Immunizations Immunization Administration Dates Next Due Influenza, Quadrivalent, Hig h Dose, Preservative Free, Intrr 06/07/2020 Influenza, Quadrivalent, Split, Intramuscular Pneumococcal Conjugate PCV 13 09/21/2015 Pneumococcal Polysaccharide PPV23 08/08/2009 TD Preservative Free 01/21/2006 Tdap 01/09/2018,05/29/2015 Surgical History Surgery Date Site/Laterality Comments REPLACEMENT TOTAL KNEE BILATERAL CHOLECYSTECTOMY Medical History Medical History Date Comments DKA (diabetic ketoacidoses) Dementia (HCC) Frequent falls Family History Medical History Relation Name Comments Heart disease Father Cancer Mother Relation Name Status Comments Father Mother Social History Tobacco Use Types Packs/Day Years Used Date Smoking Tobacco: Former Cigarettes Q uit: 03/21/1981 Smokeless Tobacco: Never Tobacco Cessation:Counseling Given: Not Answered AUDIT-C Answer Date Recorded Q1: How often do you have a drink containing alc ohol? Never 03/21/2021 Average Number of Drinks Not on file 021 Q3: How often do you have si x or more drinks on one occasion? 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[employer] Gender Identity Not on file Sexual Orientation Not on file Obstetrics History Last Filed Vital Signs Vital Sign Reading Time Taken Comments Blood Pressure 110/78 05/20/2024 1:47 PM CDT Pulse 74 05/20/2024 1:47 PM CDT Temperature 36.4 C (97.5 F) 04/09/2022 5:19 PM CDT Respiratory Rate - - Oxygen Saturation - - Inhaled Oxygen Concentration - - Weight 76.7 kg (169 lb) 05/20/2024 1:47 PM CDT Height 152.4 cm (5') 05/20/2024 1:47 PM CDT Body Mass Index 33.01 05/20/2024 1:47 PM CDT Plan of Treatment Health Maintenance Due Date Last Done Comments Albumin Creatinine Ratio, Urine 1940 Depression Screening 1940 Fall Risk Assessment 1940 Hemoglobin A1C 1940 Osteoporosis Screening-Bone Density Scan 1940 eGFR 1940 Dilated Eye Exam 1940 Foot Exam 1940 Hepatitis B Screening 1958 Zoster Vaccine (1 of 2) 1990 Well Visit 65+ 2005 Lipid Panel 01/11/2019 01/11/2018 Covid-19 Vaccine (3 - 2023- season) 05/16/202405/2021, 10/24/2020 Influenza Vaccine (#1) 2024 06/07/2020, 2018 DTaP/Tdap/Td Vaccine (3 - Td or Tdap) 01/10/2028 01/09/2018, 05/29/2015, 01/21/2006 Pneumococcal vaccine 65+ Completed 09/21/2015, 07/17 Insurance [employer] [facility] Address: [address] [address] [place] [address] [employer] [facility] Address: [facility] [id number] [place] [phone] Care Teams Quill Fixer Relationship Specialty Start Date End Date José To MD PCP - General Family Practice 10/06/20
--- OUTSIDE RECORDS SUMMARY | 2024-11-25 21:46 | XMS_ITS | Referral Summary ---
Author Organization [facility] Medical Office Building B Address [address] [place] [address] Care Team Providers Care Process Architect Name Role Phone José To MD Primary [...] 08/08/2009 TD Preservative Free 01/21/2006 Tdap 01/09/2018,05/29/2015 Social History Tobacco Use Types Packs/Day Years Used Date Smoking Tobacco: Former Cigarettes Q uit: 03/21/1981 Smokeless Tobacco: Never Tobacco Cessation:Counseling Given: Not Answered AUDIT-C Answer Date Recorded Q1: How often do you have a drink containing alc ohol? Never 03/21/2021 Average Number of Drinks Not on file Q3: How often do you have si x or more drinks on one occasion? 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
[2024-11-25 21:47] VITALS: BP 153/78; PULSE 78; RESP 18; TEMP 36.8; O2SAT 97
[2024-11-26 00:27] VITALS: BP 144/64; PULSE 66; RESP 21; O2SAT 97
--- NOTE | 2024-11-26 00:43 | ECG_ITS ---
Test Date: 2024-11-26 02:11:30 Measurements Intervals [place] Rate: 64 P: 65 KS: 252 QRS: -9 QRSD: 95 T: 51 QT: 360 QTc: 372 Interpretive Statements SINUS RHYTHM WITH FIRST DEGREE AV BLOCK INCOMPLETE RIGHT BUNDLE BRANCH BLOCK [90+ ms QRS DURATION, TERMINAL R IN V1/V2, 40+ ms S IN I/aVL/V4/V5/V6] NONSPECIFIC ST & T-WAVE ABNORMALITY Compared to ECG 04/04/2024 20:52:31 Sinus tachycardia no longer present Electronically Signed On 11-26-2024 16:54:48 CDT by Serafin Fernandez M.D.
--- OUTSIDE RECORDS SUMMARY | 2024-11-26 00:46 | XMS_ITS | Clinical Summary ---
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
--- OUTSIDE RECORDS SUMMARY | 2024-11-26 00:46 | XMS_ITS | Referral Summary ---
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 MEDIC[facility] Address: [address] [address] [place] [address] [employer] Care Teams Technical Aide Relationship Specialty Start Date End Date José To MD PCP - General Family Practice 10/06/20
--- OUTSIDE RECORDS SUMMARY | 2024-11-26 00:46 | XMS_ITS | Continuity of Care Document ---
Author Organization [facility] Address [address] [place] [address] [address] [place] [address] Phone Care Team Providers Care Admissions Counselor Name Role Phone Uli Moody Unavailable Unavailable Procedures Procedure Date Office/outpatient Visit, Est Office Consultation Visual Field Examination(s) Office Consultation Advance Directives Directive Yes / No Effective Date File Name No Information Encounters Encounter Description Practice Location Reason(s) For Visit Diagnoses Date Provider Providers Copied on Encounter Office/outpati ent Visit, Est [facility], [address], [place], [place], [id number], [place] tel:[phone] [facility] No Information 7 Fransisco Mcnally. [facility], [place], [address], [place]. tel:[phone] Referring Provider: Emory Pickens, [address] [place], [place], [facility]. tel:[phone] [facility], [address], [place], [place], [id number], [place] tel:[phone] [facility] No Information 7 Marcellus Cat. [address] [place], [address], [place]. tel:[phone] Referring Provider: lUi Schwarz [address], [place], [place], [facility]. tel:[phone] [facility], [address], [place], [place], [id number], [place] tel:[phone] [facility] No Information Nov-3 0-200 7 Fransisco Mcnally. [address], [place], [address], [place]. tel:[phone] Referring Provider: Malick Gupta, [address] [facility], [place], [address]. tel:[phone] Family History Family Member Type Diagnosis Age At Onset No Information Payers Payer name Insurance type Covered democrat ID Authoriza tion(s) No Information Social History [...]
--- NOTE | 2024-11-26 00:49 | ED_ITS ---
HPI - Extremity Problem General Chief complaint: Extremity Problem,Nontraumatic Stated complaint: Swelling in both lower legs x 1week, pain in feet Time Seen by Provider: 11/26/24 00:28 History of Present Illness HPI Narrative: Patient is an 84-year-old presents to ER with concerns of bilateral lower extremity edema and elevated blood pressure. She reports that her bilateral feet swelling started approximately 1 week ago. Patient's daughter reports she noticed mother's lower extremity edema she requested the staff at [facility] check her vital signs. Her daughter reports they told her that her mother's blood pressure was in the 190s over 110s. Patient reports she has a history of high blood pressure and takes medication every day to treat it. She denies any cough, fevers, shortness of breath, or chest pain. Patient endorses a history of high blood pressure, COPD, and GERD. Related Data Home Medications ?Medication ?Instructions ?Recorded ?Confirmed ?Last Taken ?Type lancets (Ultra Thin Lancets) #50 ea 08/09/19 06/17/24 Unknown History psyllium husk 0.4 gram capsule 0.4 gm PO DAILY 10/25/19 10/08/24 Unknown History (Daily Fiber) memantine 10 mg tablet 10 mg PO BID 03/28/21 10/08/24 Unknown History donepezil 10 mg tablet 10 mg PO QHS 04/02/22 10/08/24 Unknown History tizanidine 2 mg capsule 2 mg PO TID PRN muscle spasticity 06/28/22 10/08/24 Unknown History escitalopram oxalate 20 mg tablet 20 mg PO DAILY 11/28/22 10/08/24 Unknown History hydrocodone 5 mg-acetaminophen 325 1 tablet PO BID 11/28/22 10/08/24 Unknown History mg tablet olanzapine 2.5 mg tablet 2.5 mg PO QAM 11/28/22 10/08/24 Unknown History sennosides 8.6 mg tablet (senna) 8.6 mg PO QHS 11/28/22 10/08/24 Unknown History mirtazapine 15 mg tablet 15 mg PO QHS 08/11/23 10/08/24 Unknown History hydroxyzine HCl 25 mg tablet 25 mg PO QHS PRN itching 06/17/24 10/08/24 Unknown History olanzapine 10 mg tablet 10 mg PO QHS 06/17/24 10/08/24 Unknown History omeprazole 20 mg capsule,delayed 20 mg PO DAILY 06/17/24 10/08/24 Unknown History release Allergies Allergy/AdvReac Type Severity Reaction Status Date / Time azithromycin Allergy Unknown Diarrhea Verified 11/25/24 21:44 codeine Allergy Unknown Nausea Verified 11/25/24 21:44 Penicillins Allergy Unknown Skin Verified 11/25/24 21:44 irritation Review of Systems 2 Review of Systems: All systems reviewed & are unremarkable except as noted in HPI and below PMFSH Past Medical History Medical History Osteopenia Prediabetes Closed fracture of right proximal humerus Vitamin D deficiency Dementia Tendonitis of left rotator cuff Bilateral shoulder region arthritis Arthritis of carpometacarpal (CMC) joint of left thumb Metacarpal bone fracture Anxiety Depression Dyslipidemia Chronic low back pain with sciatica 12/16/2018 Unspecified osteoarthritis, unspecified site Hypothyroidism Essential (primary) hypertension COPD (chronic obstructive pulmonary disease) Surgical History Surgical History History of bilateral knee replacement 1990s History of cholecystectomy (~1979) Family History Family History Mother Stomach cancer Sibling Lung cancer Social History Social History Smoking status: Never smoker Second hand tobacco smoke exposure: No Smoking end date: 09/15/69 Alcohol intake: never Substance use: never Substance use type: does not use Do You Feel Safe in your Home?: Yes Lack of Transportation: No Lack of Food: Never True Current Housing: I Have Housing Concerned About Future Housing: No Difficulty Paying Gas/Electric Bills: No Difficulty Paying for Meds: No Currently Unemployed: No Education: Grade School Difficulty w/ Childcare or Family Care: No Living arrangements: assisted living Additional living arrangements comments: Occupation/Education: retired Gender identity (if verbalized by the patient): Female Sexual Orientation (if Verbalized by the Patient): Straight or Heterosexual Spiritual care concerns: No Exam 2 Narrative: GENERAL: Well appearing, well-nourished, non-toxic, in no acute distress. HEAD: Normocephalic, atraumatic. NECK: Supple. No adenopathy, no masses. RESPIRATORY: Airway patent, respirations nonlabored. Clear to auscultation bilaterally, no rales, rhonchi, wheezing. CARDIOVASCULAR: Regular rate and rhythm without murmurs, rubs, or gallops, bilateral +4 pitting edema, pedal pulses palpable ABDOMINAL: Soft, nontender, nondistended, no hepatosplenomegaly. Normoactive BS. MUSCULOSKELETAL: Moves all extremities. Strength/ROM intact without gross deformities. SKIN: Warm, dry, normal color. No rashes. NEURO: A&O X3. Speech clear. Cranial nerves II-XII grossly intact. No ataxic movements. PSYCHIATRIC: Appropriate mood and affect. Normal interaction. Course Vital Signs Vital signs: Vital Signs Temperature 36.8 C 11/25/24 21:47 Pulse Rate 78 11/25/24 21:47 Respiratory Rate 18 11/25/24 21:47 Blood Pressure 153/78 H 11/25/24 21:47 Pulse Oximetry 97 11/25/24 21:47 Oxygen Delivery Room Air 11/25/24 21:47 Temperature 36.8 C 11/25/24 21:47 Pulse Rate 61 11/26/24 02:15 Respiratory Rate 16 11/26/24 02:15 Blood Pressure 177/78 H 11/26/24 02:15 Pulse Oximetry 97 11/26/24 02:15 Oxygen Delivery Room Air 11/25/24 21:47 MDM - Extremity (Nontraumatic) MDM Narrative Medical decision making narrative: Patient is an 84-year-old presents to ER with concerns of bilateral lower extremity edema and elevated blood pressure. She reports that her bilateral feet swelling started approximately 1 week ago. Patient's daughter reports she noticed mother's lower extremity edema she requested the staff at [facility] check her vital signs. Her daughter reports they told her that her mother's blood pressure was in the 190s over 110s. Patient reports she has a history of high blood pressure and takes medication every day to treat it. She denies any cough, fevers, shortness of breath, or chest pain. Patient endorses a history of high blood pressure, COPD, diabetes, and GERD. Labs Ordered: CBC, CMP, troponin, PTT, INR, proBNP Imaging Ordered: Chest x-ray Medications Ordered: Potassium 40meQ (pt has chronically low potassium) Results: PT's chest x-ray indicates 1: No acute cardiopulmonary disease. 2: Large hiatal hernia. 3: Cardiomegaly. * chest x-ray was consistent with previous chest x-ray performed in 03/2024 Diagnosis: dependent lower extremity edema, primary hypertension Risks: HEART score: low risk HEART Score for Major Cardiac Events from [employer] on 11/26/2024 All calculations should be rechecked by clinician prior to use RESULT SUMMARY: 3 points Low Score (0-3 points) Risk of MACE of 0.9-1.7%. INPUTS: History ?> 0 = Slightly suspicious EKG ?> 0 = Normal Age ?> 2 = >=5 Risk factors ?> 1 = 1-2 risk factors Initial troponin ?> 0 = <=Normal limit Consults: None necessary Patient Education/Shared MDM: Results of lab work and chest x-ray shared with patient and her daughter. Patient strongly advised to keep her legs elevated as much as possible, wear compression socks, and call her PCP tomorrow for follow- up. She will be discharged home with no new prescriptions. Strict return precautions provided. Patient verbalized understanding is in agreement with plan. Vital signs stable at time of discharge. All questions answered. Differential Diagnosis Differential diagnosis: Likely cellulitis, lower extremity edema and other (CHF) Lab Data 11/26/24 02:12 11/26/24 02:12 Labs: Lab Results 11/26/24 Range/Units 02:12 WBC 7.9 (4.5-10.0) K/mm3 RBC 4.65 (4.2-5.4) M/mm3 Hgb 13.7 (12.0-15.0) g/dL Hct 40.2 (37.0-47.0) % MCV 86.5 (80-100) fl MCH 29.5 (26-34) pg MCHC 34.1 (32-36) g/dl RDW 13.2 (11.5-14.5) % Plt Count 155 (150-375) k/mm3 MPV 10.4 (7.4-10.4) fl Immature Gran % (Auto) 0.8 H (0-0.5) % Neut % (Auto) 69.6 (45.5-73.1) % Lymph % (Auto) 20.7 (18.3-44.2) % [place] % (Auto) 8.0 (2.6-8.5) % Eos % (Auto) 0.8 (0-4.4) % Baso % (Auto) 0.1 L (0.2-1.2) % Lymph # (Auto) 1.64 (0.9-3.2) K/mm3 [place] # (Auto) 0.6 (0.1-0.6) K/mm3 Eos # (Auto) 0.1 (0-0.3) K/mm3 Baso # (Auto) 0.0 (0.0-0.1) K/mm3 Abs Immat Gran (auto) 0.06 H (0.00-0.031) K/mm3 Absolute Neuts (auto) 5.5 (1.3-6.7) K/mm3 Absolute Nucleated RBC 0.000 (0.0-0.012) K/mm3 Nucleated RBC % 0.0 (0.0-0.2) % PT 13.9 (11.1-14.7) Seconds INR 1.0 APTT 27.0 (22.3-36.8) Seconds Sodium 135 L (137-145) mmol/L Potassium 3.1 L (3.4-5.0) mmol/L Chloride 96 L (98-107) mmol/L Carbon Dioxide 27 (22-30) mmol/L Anion Gap 12 (4-12) mmol/L BUN 11 D (7-17) mg/dL Creatinine 0.88 (0.7-1.0) mg/dL Estim Creat Clear Calc 39 ml/min Estimated GFR > 60 (59 - ) Glucose 100 (65-110) mg/dL Calcium 9.0 (8.4-10.2) mg/dL Total Bilirubin 1.0 (0.2-1.3) mg/dL AST 27 (14-36) U/L ALT 19 (6-35) U/L Alkaline Phosphatase 111 (38-126) U/L Troponin I < 0.012 (0.000-0.034) ng/mL NT-Pro-B Natriuret Pep 56 (19.9-100) pg/mL Total Protein 7.0 (6.3-8.2) g/dL Albumin 4.2 (3.5-5.1) g/dL Discharge Plan Discharge Clinical Impression: Dependent edema, Essential (primary) hypertension Patient Disposition: [facility] Nursing Home/Asst Living Condition: Stable Instructions: Antibiotic Form, Leg Edema (ED) Additional Instructions: Please return to the ER with any worsening symptoms. Follow-up with primary care provider as soon as possible. Please call them tomorrow morning. Take all regularly scheduled medications as prescribed. Please keep your lower extremities elevated and wear compression socks. Patient Language: Citizen Of [place] Prescriptions: New (DME) compression socks, x-large [LifestyleComfort Socks X-Large] Misc See Rx Instructions .Route Qty: 2 0RF Rx Instructions: As directed No Action (DME) lancets [Ultra Thin Lancets] Misc See Rx Instructions .ROUTE .MEDSUPPLY Qty: 50 Rx Instructions: As directed donepezil 10 mg tablet 10 mg PO QHS escitalopram oxalate 20 mg tablet 20 mg PO DAILY hydrocodone-acetaminophen 5-325 mg tablet 1 tablet PO BID sennosides [senna] 8.6 mg tablet 8.6 mg PO QHS ibuprofen 600 mg tablet 600 mg PO BID PRN (Reason: pain) Qty: 60 0RF tizanidine 2 mg capsule 2 mg PO TID MDD rx PRN (Reason: muscle spasticity) lidocaine 4 % adhesive patch,medicated 1 patch topical DAILY PRN (Reason: pain) Qty: 30 4RF fluticasone propionate [Flonase Allergy Relief] 50 mcg/actuation spray,suspension 2 spray intranasal DAILY PRN (Reason: allergy symptoms) Qty: 9.9 5RF Rx Instructions: administer into each nostril ibandronate [Boniva] 150 mg tablet 150 mg PO MONTHLY Qty: 3 4RF hydroxyzine HCl 25 mg tablet 25 mg PO QHS PRN (Reason: itching) omeprazole 20 mg capsule,delayed release(DR/EC) 20 mg PO DAILY olanzapine 10 mg tablet 10 mg PO QHS albuterol sulfate 90 mcg/actuation HFA aerosol inhaler 1 puff inhalation Q4H PRN (Reason: shortness of breath or wheezing) Qty: 8.5 0RF furosemide 20 mg tablet 20 mg PO QAM Qty: 4 0RF albuterol sulfate 2.5 mg /3 mL (0.083 %) solution for nebulization 2.5 mg CNTNEBULIZ Q4-6H PRN (Reason: shortness of breath or wheezing) Qty: 18 0RF psyllium husk [Daily Fiber] 0.4 gram capsule 0.4 gm PO DAILY olanzapine 2.5 mg tablet 2.5 mg PO QAM memantine 10 mg tablet 10 mg PO BID mirtazapine 15 mg tablet 15 mg PO QHS indapamide 2.5 mg tablet 2.5 mg PO DAILY Qty: 90 2RF levothyroxine 100 mcg tablet 100 mcg PO DAILY Qty: 90 1RF irbesartan 300 mg tablet 300 mg PO DAILY Qty: 90 2RF atorvastatin 80 mg tablet 80 mg PO DAILY Qty: 90 1RF (DME) True Metrix Glucose Test Strip Strip See Rx Instructions .ROUTE .MEDSUPPLY Qty: 10 3RF Rx Instructions: As directed (DME) lancets [Easy Touch Safety Lancets] 30 gauge misc See Rx Instructions .Route Qty: 100 2RF Rx Instructions: Use to check BS once daily. Breo Ellipta 200-25 mcg/dose blister with device 1 inh INHALATION DAILY Qty: 90 1RF ergocalciferol (vitamin D2) 50 mcg (2,000 unit) tablet 50 mcg PO DAILY Qty: 90 3RF Follow-up/Referrals: Mariola To MD [Primary Care Provider] - Stand Alone Forms: Alf Discharge Time of Disposition: 03:15
[2024-11-26 02:15] VITALS: BP 177/78; PULSE 61; RESP 16; O2SAT 97
[2024-11-26 02:18] LABS: Basophils Percent Auto 0.1 % (0.2-1.2); Eosinophils Absolute Auto 0.1 K/mm3 (0-0.3); Eosinophils Percent Auto 0.8 % (0-4.4); Hematocrit 40.2 % (37.0-47.0); Hemoglobin 13.7 g/dL (12.0-15.0); Immature Granulocyte Absolute 0.06 K/mm3 (0.00-0.031); Immature Granulocyte Percent A 0.8 % (0-0.5); Lymphocytes Absolute Auto 1.64 K/mm3 (0.9-3.2); Lymphocytes Percent Auto 20.7 % (18.3-44.2); Mean Corpuscular HGB Conc 34.1 g/dl (32-36); Mean Corpuscular Hemoglobin 29.5 pg (26-34); Mean Corpuscular Volume 86.5 fl (80-100); Mean Platelet Volume 10.4 fl (7.4-10.4); Monocytes Absolute Auto 0.6 K/mm3 (0.1-0.6); Neutrophils Absolute Auto 5.5 K/mm3 (1.3-6.7); Neutrophils Percent Auto 69.6 % (45.5-73.1); Platelet Count Result 155 k/mm3 (150-375); Red Blood Count 4.65 M/mm3 (4.2-5.4); Red Cell Distribution Width 13.2 % (11.5-14.5); White Blood Count 7.9 K/mm3 (4.5-10.0)
[2024-11-26 02:34] LABS: Alanine Aminotransferase 19 U/L (6-35); Albumin Level 4.2 g/dL (3.5-5.1); Alkaline Phosphatase 111 U/L (38-126); Anion Gap 12 mmol/L (4-12); Aspartate Amino Transferase 27 U/L (14-36); Blood Urea Nitrogen 11 mg/dL (7-17); Carbon Dioxide 27 mmol/L (22-30); Chloride 96 mmol/L (98-107); Estimated CRCL calculation 39 ml/min; Estimated Glomerular Filt Rate > 60; Glucose 100 mg/dL (65-110); Potassium 3.1 mmol/L (3.4-5.0); Sodium 135 mmol/L (137-145)
[2024-11-26 02:45] LABS: NT Pro B Type Natriuretic Pept 56 pg/mL (19.9-100); Prothrombin Time 13.9 Seconds (11.1-14.7); Troponin I < 0.012 ng/mL (0.000-0.034)
[2024-11-26] MEDS: POTASSIUM CHLORIDE 20 MEQ PACKET (FOR LIQUID) 40 MEQ PO (02:46)
[2024-11-26 03:27] VITALS: BP 142/90; PULSE 78; RESP 18; O2SAT 99
== END 2024-11-26 03:28 ==
PROVIDERS: Emergency Provider Registered Nurse; PCP Family Medicine
DX: R60.0 Localized edema (principal); I10 Essential (primary) hypertension; F03.90 Unspecified dementia, unspecified severity, without behavioral disturbance, psychotic disturbance, mood disturbance, and anxiety; J44.9 Chronic obstructive pulmonary disease, unspecified; R73.03 Prediabetes; E55.9 Vitamin D deficiency, unspecified; E03.9 Hypothyroidism, unspecified; K21.9 Gastro-esophageal reflux disease without esophagitis; M19.012 Primary osteoarthritis, left shoulder; M19.011 Primary osteoarthritis, right shoulder; M85.80 Other specified disorders of bone density and structure, unspecified site; F32.A Depression, unspecified; F41.9 Anxiety disorder, unspecified; Z87.891 Personal history of nicotine dependence; Z96.653 Presence of artificial knee joint, bilateral; Z90.49 Acquired absence of other specified parts of digestive tract; K44.9 Diaphragmatic hernia without obstruction or gangrene; I51.7 Cardiomegaly; Z79.899 Other long term (current) drug therapy; I44.0 Atrioventricular block, first degree; I45.10 Unspecified right bundle-branch block; R94.31 Abnormal electrocardiogram [ECG] [EKG]
CPT/HCPCS: 36415; 71046; 80053; 83880; 84484; 85025; 85610; 85730; 93005; 99284; A9270